=== PATIENT | female | born 1940 | race African-American/Black ===

== ENCOUNTER 2018-10-13 10:44 | Inpatient (IN) | payer MEDICARE, OTHER ==
[~2018-10-13] VITALS: Ht 160 cm; Wt 66.4 kg
[~2018-10-13 10:44] MED LIST: AMLO-268 PO; ATEN25TA42 PO; CYCL5TAB PO; INSU100I13 SQ; INSU100V31 SQ; INSULIN; LISI10TA2 PO; LORA0.5T96 PO; LOSA1TAB19 PO; PENT400T4 PO; TRAM50TA PO
[2018-10-13] MEDS ORDERED: IV NORMAL SALINE 500ML 500 ML IV ONE (11:15)
[2018-10-13 11:18] LABS: BASO # 0.1 x10^3/uL (0.0-0.2); BASO % 1 % (0-3); EOS % 0 % (0-3); HEMATOCRIT 36.8 % (36.0-47.0); HEMOGLOBIN 12.4 g/dL (12.0-15.5); LYMPH # 0.7 x10^3/uL (1.0-4.8); LYMPH % 8 % (24-48); MEAN CORPUSCULAR HEMOGLOBIN 31 pg (25-35); MEAN CORPUSCULAR HGB CONC 34 g/dL (31-37); MEAN CORPUSCULAR VOLUME 91 fL (79-100); MONO # 0.4 x10^3/uL (0.0-1.1); MONO % 5 % (0-9); NEUT # 7.3 x10^3uL (1.8-7.7); NEUT % 86 % (31-73); PLATELET COUNT 388 x10^3/uL (140-400); RED BLOOD COUNT 4.04 x10^6/uL (3.50-5.40); RED CELL DISTRIBUTION WIDTH 12.7 % (11.5-14.5); WHITE BLOOD COUNT 8.5 x10^3/uL (4.0-11.0)
[2018-10-13] MEDS ORDERED: ONDANSETRON PF 4 MG/2 ML VIAL. IV ONE (11:30)
[2018-10-13 11:31] LABS: ALBUMIN 2.6 g/dL (3.4-5.0); ALBUMIN/GLOBULIN RATIO 0.5 (1.0-1.7); CALCIUM 8.9 mg/dL (8.5-10.1); CREATININE 2.6 mg/dL (0.6-1.0); GFR 21.7; POTASSIUM 4.3 mmol/L (3.5-5.1); TOTAL BILIRUBIN 0.6 mg/dL (0.2-1.0); TOTAL PROTEIN 7.8 g/dL (6.4-8.2)
--- NOTE | 2018-10-13 11:49 | EKG ---
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
[2018-10-13 12:34] LABS: BACTERIA,URINE MOD /HPF (0-FEW); BILIRUBIN,URINE NEG (NEG); CLARITY,URINE HAZY; COLOR,URINE YELLOW; GLUCOSE,URINE 500 mg/dL (NEG); NITRITE,URINE NEG (NEG); RBC,URINE RARE /HPF (0-2); SQUAMOUS EPITHELIAL CELL,UR MOD /LPF; UROBILINOGEN,URINE 0.2 mg/dL (0.2 mg/dL)
[2018-10-13 12:35] LABS: GRANULAR CASTS,URINE OCC /HPF; HYALINE CASTS, URINE FEW /HPF
--- NOTE | 2018-10-13 13:06 | PHYS DOC ---
Past History Past Medical History: Diabetes, Hypertension, Other Past Surgical History: Colectomy Alcohol Use: None Drug Use: None Adult General Chief Complaint Chief Complaint: NAUSEA/VOMITING/DIARRHEA HPI HPI Patient is a 77 year old female who presents with playing of episodes of nausea and vomiting and diarrhea for the last 2 days. Patient states she has had 3-4 episodes of vomiting and 4-5 episodes of nonbloody diarrhea every day for the last 3 days but today had only one episode of vomiting and diarrhea. Patient denies abdominal pain, fever and chills, chest pain and shortness of breath, sick contact. Patient complaining of generalized weakness and not feeling good. Review of Systems Review of Systems Constitutional: Denies fever or chills [] Eyes: Denies change in visual acuity, redness, or eye pain [] HENT: Denies nasal congestion or sore throat [] Respiratory: Denies cough or shortness of breath [] Cardiovascular: No additional information not addressed in HPI [] GI: Denies abdominal pain, reports nausea, vomiting, diarrhea [] : Denies dysuria or hematuria [] Musculoskeletal: Denies back pain or joint pain [] Integument: Denies rash or skin lesions [] Neurologic: Denies headache, focal weakness or sensory changes [] Endocrine: Denies polyuria or polydipsia [] All other systems were reviewed and found to be within normal limits, except as documented in this note. Current Medications Current Medications Current Medications Medications (Trade) Dose Ordered Sig/Genna Start Time Stop Time Status Last Admin Dose Admin Ondansetron HCl (Zofran) 4 mg 1X ONCE 10/13/18 11:30 10/13/18 11:31 DC 10/13/18 11:16 4 MG Sodium Chloride 500 ml @ 0 mls/hr 1X ONCE 10/13/18 11:15 10/13/18 11:16 DC 10/13/18 11:16 500 MLS/HR Allergies Allergies Allergies Coded Allergies Type Severity Reaction Last Updated Verified No Known Drug Allergies 08/09/13 No Physical Exam Physical Exam Constitutional: Well developed, mild distress, non-toxic appearance. [] HENT: Normocephalic, atraumatic, oropharynx dry, no oral exudates.] Eyes: PERRLA, EOMI, conjunctiva normal, no discharge. [] Neck: Normal range of motion, no tenderness, supple, no stridor. [] Cardiovascular:Heart rate regular rhythm, no murmur [] Lungs & Thorax: Bilateral breath sounds clear to auscultation [] Abdomen: Bowel sounds normal, no guarding, soft, no tenderness, no masses, no pulsatile masses. [] Skin: Warm, dry, no erythema, no rash. [] Back: No tenderness, no CVA tenderness. [] Extremities: No tenderness, no cyanosis, no clubbing, ROM intact, no edema. [] Neurologic: Alert and oriented X 3, normal motor function, normal sensory function, no focal deficits noted. [] Psychologic: Affect normal, judgement normal, mood normal. [] Current Patient Data Vital Signs Vital Signs Date Time Temp Pulse Resp B/P (MAP) Pulse Ox O2 Delivery O2 Flow Rate FiO2 10/13/18 10:54 98.0 106 20 97 Room Air Lab Results Laboratory Tests Test 10/13/18 10:56 10/13/18 11:01 10/13/18 12:04 White Blood Count 8.5 x10^3/uL (4.0-11.0) Red Blood Count 4.04 x10^6/uL (3.50-5.40) Hemoglobin 12.4 g/dL (12.0-15.5) Hematocrit 36.8 % (36.0-47.0) Mean Corpuscular Volume 91 fL (79-100) Mean Corpuscular Hemoglobin 31 pg (25-35) Mean Corpuscular Hemoglobin Concent 34 g/dL (31-37) Red Cell Distribution Width 12.7 % (11.5-14.5) Platelet Count 388 x10^3/uL (140-400) Neutrophils (%) (Auto) 86 % (31-73) H Lymphocytes (%) (Auto) 8 % (24-48) L Monocytes (%) (Auto) 5 % (0-9) Eosinophils (%) (Auto) 0 % (0-3) Basophils (%) (Auto) 1 % (0-3) Neutrophils # (Auto) 7.3 x10^3uL (1.8-7.7) Lymphocytes # (Auto) 0.7 x10^3/uL (1.0-4.8) L Monocytes # (Auto) 0.4 x10^3/uL (0.0-1.1) Eosinophils # (Auto) 0.0 x10^3/uL (0.0-0.7) Basophils # (Auto) 0.1 x10^3/uL (0.0-0.2) Sodium Level 132 mmol/L (136-145) L Potassium Level 4.3 mmol/L (3.5-5.1) Chloride Level 98 mmol/L (98-107) Carbon Dioxide Level 22 mmol/L (21-32) Anion Gap 12 (6-14) Blood Urea Nitrogen 37 mg/dL (7-20) H Creatinine 2.6 mg/dL (0.6-1.0) H Estimated GFR (Cockcroft-Gault) 21.7 BUN/Creatinine Ratio 14 (6-20) Glucose Level 269 mg/dL (70-99) H Lactic Acid Level 1.2 mmol/L (0.4-2.0) Calcium Level 8.9 mg/dL (8.5-10.1) Total Bilirubin 0.6 mg/dL (0.2-1.0) Aspartate Amino Transferase (AST) 23 U/L (15-37) Alanine Aminotransferase (ALT) 23 U/L (14-59) Alkaline Phosphatase 99 U/L (46-116) Troponin I Quantitative < 0.017 ng/mL (0-0.055) Total Protein 7.8 g/dL (6.4-8.2) Albumin 2.6 g/dL (3.4-5.0) L Albumin/Globulin Ratio 0.5 (1.0-1.7) L Lipase 51 U/L (73-393) L Glucose (Fingerstick) 260 mg/dL (70-99) H Urine Collection Type Unknown Urine Color Yellow Urine Clarity Hazy Urine pH 5.0 Urine Specific [place] 1.020 Urine Protein >100 mg/dl (NEG-TRACE) Urine Glucose (UA) 500 mg/dL (NEG) Urine Ketones (Stick) Trace mg/dL (NEG) Urine Blood Mod (NEG) Urine Nitrite Neg (NEG) Urine Bilirubin Neg (NEG) Urine Urobilinogen Dipstick 0.2 mg/dL (0.2 mg/dL) Urine Leukocyte Esterase Neg (NEG) Urine RBC Rare /HPF (0-2) Urine WBC 1-4 /HPF (0-4) Urine Squamous Epithelial Cells Mod /LPF Urine Bacteria Mod /HPF (0-FEW) Urine Hyaline Casts Few /HPF Urine Granular Casts Occ /HPF Urine Mucus Slight /LPF EKG EKG EKG interpreted by me. EKG at 11 elevate showed sinus tachycardia at rate of 104 , normal DE and QT intervals, T-wave abnormalities anterior 1 lateral leads, no acute ST and T-wave abnormalities. Radiology/Procedures Radiology/Procedures [] Course & Med Decision Making Course & Med Decision Making Pertinent Labs and Imaging studies reviewed. (See chart for details) Evaluation of patient in ER showed 77-year-old male patient with history of chronic renal failure and diabetes mellitus presented with complaining of episode of nausea and vomiting and diarrhea for 2 days. Patient did not have abdominal pain. Patient had marked tachycardia at arrival to ER that resolved with rest. Patient was afebrile and did not have hypotension. Labs did not show acute finding except for chronic renal insufficiency. Patient treated with IV fluid and felt better. Patient tolerated oral intake. Plan to admit patient for observation regarding acute gastroenteritis and diabetes mellitus and chronic renal failure. accepted admission at 1303. Dragon Disclaimer Dragon Disclaimer This electronic medical record was generated, in whole or in part, using a voice recognition dictation system. Departure Departure: Impression: Primary Impression: Acute gastroenteritis Additional Impressions: Acute on chronic renal insufficiency Uncontrolled diabetes mellitus Disposition: HOME, SELF-CARE (at 1303) Admitting Physician: Alexx Cruz (accepted admission at 1303) Condition: STABLE Referrals: MARTIN MORRIS MD (PCP) Problem Qualifiers Additional Impressions: Uncontrolled diabetes mellitus Diabetes mellitus type: type 2 Glycemic state: with hyperglycemia Qualified Codes: E11.65 - Type 2 diabetes mellitus with hyperglycemia KEDAR HENDERSON MD Oct 13, 2018 13:06
[2018-10-13 13:50] VITALS: BP 169/82
[2018-10-13] MEDS: IV NORMAL SALINE 1,000ML 1,000 ML IV SCH ×2 (14:10→22:52)
[2018-10-13] MEDS ORDERED: CARV25TA PO (15:45)
[2018-10-13] MEDS ORDERED: TIMO10DR5 EACHEYE (15:45)
[2018-10-13] MEDS ORDERED: TRAM50TA PO (15:45)
[2018-10-13] MEDS ORDERED: LOSA1TAB22 PO (15:45)
[2018-10-13] MEDS ORDERED: FOLI1CAP10 PO (15:45)
[2018-10-13] MEDS ORDERED: ATEN25TA42 PO (15:45)
[2018-10-13 16:03] VITALS: BP 154/70
[2018-10-13] MEDS ORDERED: ONDANSETRON PF 4 MG/2 ML VIAL. IV PRN (16:30)
[2018-10-13] MEDS ORDERED: DEXTROSE 50% 25 GM / 50ML DISP.SYRIN. IV PRN (16:30)
[2018-10-13] MEDS: INSULIN LISPRO 300 UNITS/3 ML INSULN.PEN. SQ SCH (17:08)
[2018-10-13 19:29] VITALS: BP 149/73
[2018-10-13 23:17] VITALS: BP 142/79
[2018-10-14 05:29] VITALS: BP 143/77
[2018-10-14] MEDS: INSULIN LISPRO 300 UNITS/3 ML INSULN.PEN. SQ SCH ×4 (08:00→17:00)
[2018-10-14] MEDS: IV NORMAL SALINE 1,000ML 1,000 ML IV SCH ×2 (08:37→21:45)
[2018-10-14 11:47] VITALS: BP 158/84
[2018-10-14] MEDS ORDERED: traMADol 50 MG TABLET PO PRN (12:30)
--- NOTE | 2018-10-14 13:12 | HP ---
ADMIT DATE: 10/13/2018 HISTORY OF PRESENT ILLNESS: The patient is a 77-year-old -Green[place] female patient who came to the Emergency Room complaining of nausea, vomiting as well as diarrhea that started last Tuesday. She has had 3 or 4 episodes of vomiting, 4 episodes of nonbloody diarrhea every day for the last 3 days prior to admission and on the admission day, she had only 1 episode of vomiting and diarrhea. She denied any abdominal pain. Denied any fever, chills, chest pain or shortness of breath, but did complain of pain with generalized weakness and also dizziness. She was evaluated in the Emergency Room and her chemistry showed that she has mild hyponatremia. Her creatinine was 2.6 and was admitted for rehydration. PAST MEDICAL HISTORY: Significant for type 2 diabetes mellitus that has been longstanding for more than 30 years, hypertension, hyperlipidemia, chronic kidney disease, transient ischemic attack, and sarcoidosis. PAST SURGICAL HISTORY: Significant for bilateral cataract extraction. 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 She has cholecystectomy, right shoulder rotator cuff repair and left middle finger fracture, status post open reduction and internal fixation, total abdominal hysterectomy and bilateral salpingo-oophorectomy. ALLERGIES: She has no known drug allergies. MEDICATIONS: She is currently on following medications: She is on pentoxifylline 400 mg 3 times a day, atenolol 25 mg daily, carvedilol 25 mg twice a day, losartan/hydrochlorothiazide once a day, tramadol 50 mg every 6 hours, timolol maleate 1 drop to both eyes twice a day. She is on NovoLog insulin and has insulin sliding scale before meals. She is on Lantus insulin 30 units at bedtime. She is on Nephro-Aman 1 capsule once a day. FAMILY HISTORY: She has 2 brothers and 1 sister, all younger and . Her older brother of hypertension, end-stage renal disease. Her sister of what seems to be status epilepticus and her baby brother at the age of 22 because of obscure cancer. Her mother at age of 25 and father at age of 23 and had sarcoidosis. SOCIAL HISTORY: She is . She has 7 daughters and 3 sons. She does not smoke, drink alcohol or use any recreational drugs. REVIEW OF SYSTEMS: The patient has what seemed to be glaucoma and perhaps macular degeneration and diabetic retinopathy. Denied any earache, tinnitus or sensorineural deafness. Denied any nosebleeds, stuffy nose or postnasal drip. Denied any sore throat, but did complain of nausea, vomiting as well as diarrhea, no constipation. Denied any hematemesis, melena or hematochezia. Denied any dysuria, frequency or hematuria. Denied any chest pain, shortness of breath, orthopnea, paroxysmal nocturnal dyspnea. Denied any cough, phlegm or hemoptysis. PHYSICAL EXAMINATION: GENERAL: On arrival to the Emergency Room, she was somewhat unwell, but no pallor, jaundice, cyanosis, or thyromegaly. No jugular venous distension. No lower limb edema. VITAL SIGNS: Her heart rate was 106, blood pressure 174/85, temperature was 98, respiratory rate 20, and oxygen saturation was 97% on room air. HEAD, EYES, EARS, NOSE, AND THROAT: Showed normocephalic, atraumatic. NECK: Supple. HEART: Showed normal first and second sounds. No gallop, rub or murmur. CHEST: Clear to auscultation. No crepitation or rhonchi. ABDOMEN: Distended, soft, nontender. No guarding or rigidity. No organomegaly. All hernial orifice intact. Bowel sounds normal. NEUROLOGIC: She was awake, alert, responding appropriately. Cranial nerves intact. EXTREMITIES: She moves extremities without difficulty. She ambulates without assistance or assistive devices. LABORATORY DATA: Showed serum sodium of 132, potassium 4.3, chloride 98, bicarbonate 22, anion gap of 12, BUN 37, creatinine 2.6, estimated GFR was 22 mL per minute. Her glucose was 269, lactic acid was 1.2, calcium was 8.9. Total bilirubin, AST, ALT, alkaline phosphatase were normal. Total protein was 7.8, albumin was 2.6 and lipase was 51. Her white cell count was 8500, hemoglobin 12.4, hematocrit was 37, MCV was 91, and platelet count 288,000. Her urinalysis showed that the urine was yellow, hazy with a pH of 5, specific gravity of 1.020. There was large amount of protein, large amount of glucose, trace of ketones, moderate amount of blood, negative for nitrite and leukocyte esterase. There are rare rbc's, 1-4 wbc's, moderate amount of bacteria. IMPRESSION AND PLAN: In summary, this is a 77-year-old -[place] female patient who was admitted with recurrent bouts of nausea, vomiting as well as diarrhea, consistent with probably acute gastroenteritis. The patient was started on IV fluid. We will continue with the antiemetics. We will monitor her blood sugar and adjust insulin as they are using sliding scale. We will start her on a clear liquid diet and advance her diet as tolerated. ASIF TONEY MD DR: ALYSSA/marquise JOB#: [id number] / [id number]
[2018-10-14 13:22] LABS: CALCIUM 8.2 mg/dL (8.5-10.1); CREATININE 2.4 mg/dL (0.6-1.0); GFR 23.8; POTASSIUM 4.7 mmol/L (3.5-5.1)
[2018-10-14] MEDS: PENTOXIFYLLINE ER 400 MG TABLET.ER. PO SCH ×2 (15:10→21:13)
[2018-10-14] MEDS: CARVEDILOL 12.5 MG TABLET PO SCH (18:08)
[2018-10-14 19:48] VITALS: BP 156/81
[2018-10-14] MEDS: TIMOLOL 0.5% OPHTH SOLUTION 5ML BOTTLE. OU SCH (21:13)
[2018-10-14 23:35] VITALS: BP 174/74
[2018-10-15 04:57] VITALS: BP 166/74
[2018-10-15] MEDS: INSULIN LISPRO 300 UNITS/3 ML INSULN.PEN. SQ SCH ×5 (08:00→17:44)
[2018-10-15] MEDS: IV NORMAL SALINE 1,000ML 1,000 ML IV SCH ×2 (08:46→19:51)
[2018-10-15] MEDS: TIMOLOL 0.5% OPHTH SOLUTION 5ML BOTTLE. OU SCH ×2 (08:47→20:16)
[2018-10-15] MEDS: PENTOXIFYLLINE ER 400 MG TABLET.ER. PO SCH ×3 (08:47→20:15)
[2018-10-15] MEDS: FOLIC/VIT B COMP W-C (RENAL) TABLET. PO SCH (08:47)
[2018-10-15] MEDS: CARVEDILOL 12.5 MG TABLET PO SCH ×2 (08:48→17:43)
[2018-10-15 11:54] VITALS: BP 167/84
[2018-10-15 19:11] VITALS: BP 154/72
--- NOTE | 2018-10-15 23:52 | PN ---
DATE: 10/15/2018 SUBJECTIVE: The patient is resting slightly propped up in bed, in no apparent respiratory distress. On questioning her, she continued to have some nausea and also continued to have loose bowel movement. Denied any abdominal pain. She has managed to tolerate some baked potato this afternoon. OBJECTIVE: GENERAL: When I examined her, she looked well and was clearly in no apparent respiratory distress, pale, but no jaundice, cyanosis, lymphadenopathy or thyromegaly. No jugular venous distention. No lower limb edema. VITAL SIGNS: Her heart rate was 57, blood pressure 167/84, temperature was 98.1, respiratory rate 20, and oxygen saturation was 96%. The rest of clinical examination is stable, has not really changed. Her intake over the last 24 hours was 2378, output was only 300. LABORATORY DATA: Showed her serum sodium 140, potassium 4.7, chloride 108, bicarbonate 20, anion gap of 12, BUN 34, creatinine 2.4, estimated GFR was 23 mL per minute. Her glucose was 161, calcium was 8.1. Her white cell count was 8500, hemoglobin 12, hematocrit 36, MCV 91, and platelet count 388,000. Urinalysis was unremarkable. Urine culture has showed mixed urogenital sunitha of 25-50,000. Her stool for C. diff and stool for culture and sensitivity is still pending by the time of this dictation. ASSESSMENT: 1. Probably acute gastroenteritis with recurrent bouts of nausea, vomiting as well as diarrhea, persistent, probably acute gastroenteritis. 2. The patient has multiple other medical problems including: A. Type 2 diabetes mellitus, has been longstanding for more than 30 years. 3. Hypertension. 4. Hyperlipidemia. 5. Chronic kidney disease. 6. Transient ischemic attack. 7. Sarcoidosis. PLAN: My plan is to continue with IV fluid. We will advance her diet as tolerated. I will arrange for her to have a gastric emptying study and also send stool for C. diff and culture and sensitivity. ASIF TONEY MD DR: ALYSSA/marquise JOB#: [id number] / [id number]
[2018-10-16] MEDS: IV NORMAL SALINE 1,000ML 1,000 ML IV SCH ×2 (05:29→19:30)
[2018-10-16 06:00] VITALS: BP 177/80
[2018-10-16 06:52] LABS: HEMATOCRIT 30.5 % (36.0-47.0); HEMOGLOBIN 10.2 g/dL (12.0-15.5); RED BLOOD COUNT 3.31 x10^6/uL (3.50-5.40); RED CELL DISTRIBUTION WIDTH 12.9 % (11.5-14.5); WHITE BLOOD COUNT 5.4 x10^3/uL (4.0-11.0)
[2018-10-16 06:55] LABS: ALBUMIN 1.9 g/dL (3.4-5.0); ALBUMIN/GLOBULIN RATIO 0.5 (1.0-1.7); CALCIUM 7.7 mg/dL (8.5-10.1); CREATININE 1.9 mg/dL (0.6-1.0); GFR 31.2; POTASSIUM 4.6 mmol/L (3.5-5.1); TOTAL BILIRUBIN 0.3 mg/dL (0.2-1.0); TOTAL PROTEIN 5.8 g/dL (6.4-8.2)
[2018-10-16] MEDS: INSULIN LISPRO 300 UNITS/3 ML INSULN.PEN. SQ SCH ×3 (09:21→17:04)
[2018-10-16] MEDS: PENTOXIFYLLINE ER 400 MG TABLET.ER. PO SCH ×3 (09:21→21:08)
[2018-10-16] MEDS: CARVEDILOL 12.5 MG TABLET PO SCH ×2 (09:21→17:05)
[2018-10-16] MEDS: LOSARTAN 50 MG TABLET. PO SCH (09:22)
[2018-10-16] MEDS: FOLIC/VIT B COMP W-C (RENAL) TABLET. PO SCH (09:22)
[2018-10-16] MEDS: TIMOLOL 0.5% OPHTH SOLUTION 5ML BOTTLE. OU SCH ×2 (09:22→21:08)
[2018-10-16] MEDS: hydroCHLOROthiazide 25 MG TABLET PO SCH (09:23)
[2018-10-16 10:38] VITALS: BP 176/75
[2018-10-16 14:22] VITALS: BP 171/74
--- NOTE | 2018-10-16 19:28 | PN ---
DATE: 10/16/2018 SUBJECTIVE: The patient is resting slightly propped up in bed, in no apparent respiratory distress. She has had no further episodes of nausea, vomiting. No diarrhea. Has tolerated her diet yesterday. The plan to advance her diet this morning and if she remains stable, probably discharge her to the ____ tomorrow. PHYSICAL EXAMINATION: GENERAL: When I examined her this afternoon, she looked well and was clearly in no apparent respiratory distress, pale, but no jaundice, cyanosis, or thyromegaly. No jugular venous distension. No limb edema. VITAL SIGNS: Her heart rate was 73, blood pressure was 177/80, temperature was 98.2, respiratory rate was 16, and oxygen saturation was 98% on room air. HEAD, EYES, EARS, NOSE AND THROAT: Showed normocephalic, atraumatic. NECK: Supple. HEART: Showed normal first and second heart sounds. No gallop or murmur. CHEST: Clear to auscultation. No crepitation or rhonchi. ABDOMEN: Distended, soft and nontender. NEUROLOGIC: She is awake, alert, responding appropriately. All cranial nerves are intact. She moves extremities without difficulty. She ambulates without assistance or assistive devices. Her intake over the last 24 hours was 2735 and no output was recorded. LABORATORY DATA: Her lab work as of this morning showed a serum sodium 138, potassium 4.6, chloride 110, bicarbonate 20, anion gap of 8, BUN 21, creatinine 1.9. Her estimated GFR was ____, blood glucose 178, calcium was 7.7. Total bilirubin, AST, ALT, alkaline phosphatase were normal. Total protein was 5.8 and albumin was 1.9. ASSESSMENT: 1. Acute gastroenteritis, improving slowly. 2. [id number] kidney injury, improving. Her creatinine down from 2.6 to 1.9. 3. The patient has multiple other medical problems including: A. Longstanding type 2 diabetes mellitus. B. Hypertension. C. Hyperlipidemia. D. Chronic kidney disease. E. Transient ischemic attacks. F. Sarcoidosis. PLAN: My plan is to resume her blood pressure medication and advance her diet as tolerated and repeat all her labs tomorrow and if she remains stable, tolerating her diet, she can be discharged home. ASIF TONEY MD DR: Enoc JOB#: [id number] / [id number]
[2018-10-16 19:41] VITALS: BP 164/70
[2018-10-16 22:42] VITALS: BP 172/83
[2018-10-17 05:19] VITALS: BP 156/72
[2018-10-17 07:46] LABS: CALCIUM 8.2 mg/dL (8.5-10.1); CREATININE 1.9 mg/dL (0.6-1.0); GFR 31.2; POTASSIUM 4.4 mmol/L (3.5-5.1)
[2018-10-17 08:32] VITALS: BP 156/72
[2018-10-17] MEDS: PENTOXIFYLLINE ER 400 MG TABLET.ER. PO SCH (08:32)
[2018-10-17] MEDS: FOLIC/VIT B COMP W-C (RENAL) TABLET. PO SCH (08:32)
[2018-10-17] MEDS: CARVEDILOL 12.5 MG TABLET PO SCH (08:32)
[2018-10-17] MEDS: TIMOLOL 0.5% OPHTH SOLUTION 5ML BOTTLE. OU SCH (08:32)
[2018-10-17] MEDS: LOSARTAN 50 MG TABLET. PO SCH (08:32)
[2018-10-17] MEDS: hydroCHLOROthiazide 25 MG TABLET PO SCH (08:32)
[2018-10-17] MEDS: INSULIN LISPRO 300 UNITS/3 ML INSULN.PEN. SQ SCH (08:37)
--- NOTE | 2018-10-17 12:30 | DS ---
DATE OF DISCHARGE: 10/17/2018 HOSPITAL COURSE: The patient is a 77-year-old -[place] female patient who was admitted with recurrent bouts of nausea, vomiting as well as diarrhea for which we started her on IV fluid and antiemetics. We did actually start her on a clear liquid diet that she gradually advanced and she now has had no more nausea, no vomiting, no more diarrhea, no abdominal pain. She is tolerating her diet, has been up and about without any dizziness or lightheadedness and a decision was made to discharge her home to continue on her home medications and to follow with her primary care physician. PHYSICAL EXAMINATION: GENERAL: When I examined her this morning, she looked well and was clearly in no apparent respiratory distress. No pallor, jaundice, cyanosis, or thyromegaly. No jugular venous distension. No limb edema. VITAL SIGNS: Her heart rate was 87, blood pressure 156/72, temperature was 98.7, respiratory rate was 20, and oxygen saturation was 98%. HEAD, EYES, EARS, NOSE, AND THROAT: Normocephalic, atraumatic. NECK: Supple. HEART: Showed normal first and second heart sounds. No gallop, rub, or murmur. CHEST: Clear to auscultation. No crepitation or rhonchi. ABDOMEN: Distended, soft, nontender. No guarding or rigidity. No organomegaly. All hernial orifice intact. Bowel sounds normal. NEUROLOGIC: She is awake, alert, responding appropriately. All cranial nerves intact. She moves extremities without difficulty. She ambulates without assistance or assistive devices. Her intake over the last 24 hours was ____, no output was recorded. LABORATORY DATA: Her lab this morning showed white cell count 5400, hemoglobin 10, hematocrit 30, MCV 92, and platelet count 299,000. Serum sodium 139, potassium 4.4, chloride 109, bicarbonate 20, anion gap of 10, BUN 17, creatinine 1.9, estimated GFR was 31 mL per minute. Her glucose 161, calcium was 8.2. Her liver enzymes are normal as well as her total protein was 5.8, albumin was 1.9. ASSESSMENT: 1. Acute gastroenteritis, improved. 2. Acute on chronic kidney injury, improved. Her creatinine is down from 2.6-1.93. The patient has multiple other medical problems including: A. Longstanding type 2 diabetes mellitus. B. Hypertension. C. Hyperlipidemia. D. Chronic kidney disease. E. Transient ischemic attack. F. Sarcoidosis. G. Protein calorie malnutrition with serum albumin only 1.9 g/dL. ASIF TONYE MD DR: ALYSSA/marquise JOB#: [id number] / [id number]
== END 2018-10-17 09:50 | disposition home or self-care (01) | DRG 682 ==
LOC: ER 10:44 → 1 SOUTH 13:05
PROVIDERS: ADMIT Internal Medicine; ATTEND Internal Medicine
DX: N17.9 Acute kidney failure, unspecified (principal); E43 Unspecified severe protein-calorie malnutrition; E87.1 Hypo-osmolality and hyponatremia; G45.9 Transient cerebral ischemic attack, unspecified; K52.9 Noninfective gastroenteritis and colitis, unspecified; E11.65 Type 2 diabetes mellitus with hyperglycemia; D86.9 Sarcoidosis, unspecified; E11.22 Type 2 diabetes mellitus with diabetic chronic kidney disease; E78.5 Hyperlipidemia, unspecified; H35.30 Unspecified macular degeneration; I12.9 Hypertensive chronic kidney disease with stage 1 through stage 4 chronic kidney disease, or unspecified chronic kidney disease; N18.9 Chronic kidney disease, unspecified; Z86.73 Personal history of transient ischemic attack (TIA), and cerebral infarction without residual deficits; Z90.710 Acquired absence of both cervix and uterus; Z98.41 Cataract extraction status, right eye; Z98.42 Cataract extraction status, left eye; Z68.25 Body mass index [BMI] 25.0-25.9, adult
CPT/HCPCS: 36415; 80048; 80053; 81001; 82947; 83605; 83690; 84484; 85025; 85027; 87086; 93005; 96361; 96374; J1815; J2405; J7040; 99285-25; J7030

== ENCOUNTER 2019-06-18 10:07 | Emergency (ER) | payer MEDICARE, OTHER ==
[~2019-06-18] VITALS: Ht 160 cm; Wt 67.0 kg
[~2019-06-18 10:07] MED LIST changes: +CARV25TA PO; +FOLI1CAP10 PO; +LOSA1TAB22 PO; -PENT400T4 PO; +PENT400T7 PO; +TIMO10DR5 EACHEYE
[2019-06-18] MEDS ORDERED: ONDANSETRON PF 4 MG/2 ML VIAL. IVP ONE (10:30)
[2019-06-18] MEDS ORDERED: FAMOTIDINE 20 MG/2 ML VIAL IVP ONE (10:30)
[2019-06-18 10:45] LABS: BASO # 0.1 x10^3/uL (0.0-0.2); BASO % 1 % (0-3); EOS # 0.2 x10^3/uL (0.0-0.7); EOS % 2 % (0-3); HEMATOCRIT 31.3 % (36.0-47.0); HEMOGLOBIN 10.4 g/dL (12.0-15.5); LYMPH # 1.4 x10^3/uL (1.0-4.8); LYMPH % 18 % (24-48); MEAN CORPUSCULAR HEMOGLOBIN 31 pg (25-35); MEAN CORPUSCULAR HGB CONC 33 g/dL (31-37); MEAN CORPUSCULAR VOLUME 92 fL (79-100); MONO # 0.6 x10^3/uL (0.0-1.1); MONO % 8 % (0-9); NEUT # 5.8 x10^3uL (1.8-7.7); NEUT % 71 % (31-73); PLATELET COUNT 410 x10^3/uL (140-400); RED BLOOD COUNT 3.39 x10^6/uL (3.50-5.40); RED CELL DISTRIBUTION WIDTH 12.8 % (11.5-14.5); WHITE BLOOD COUNT 8.1 x10^3/uL (4.0-11.0)
[2019-06-18 10:58] LABS: ALBUMIN 2.3 g/dL (3.4-5.0); ALBUMIN/GLOBULIN RATIO 0.5 (1.0-1.7); CALCIUM 9.3 mg/dL (8.5-10.1); CREATININE 4.9 mg/dL (0.6-1.0); GFR 10.4; POTASSIUM 3.9 mmol/L (3.5-5.1); TOTAL BILIRUBIN 0.4 mg/dL (0.2-1.0); TOTAL PROTEIN 7.4 g/dL (6.4-8.2)
[2019-06-18] MEDS ORDERED: cloNIDine HCL 0.1 MG TABLET PO ONE (11:15)
--- NOTE | 2019-06-18 11:19 | ED.ADGEN ---
Past History Past Medical History: Diabetes, Hypertension, Other Additional Past Medical Histor: Stage IV Kidney disease Past Surgical History: Colectomy Alcohol Use: None Drug Use: None Adult General Chief Complaint Chief Complaint Epigastric pain HPI HPI Patient is a 78-year-old female presents with intermittent epigastric pain 4 days. Pain is described as sharp worse after eating. It is rated uvot-ie-tacjaibh and is tender to palpation. Patient taken antacid without relief. Patient denies nausea vomiting, hematemesis is, ground emesis. No constipation or diarrhea. No urinary frequency urgency burning. No fever chills or sweats. Denies back pain. No other acute symptoms or complaints. History of cholecystectomy. Patient states she has not her medications and ate the past 2 days due to concerns regarding eating [] Review of Systems Review of Systems Review symptoms as per history of present illness. All other review of symptoms tonight. All other systems were reviewed and found to be within normal limits, except as documented in this note. Current Medications Current Medications Current Medications Medications (Trade) Dose Ordered Sig/Genna Start Time Stop Time Status Last Admin Dose Admin Clonidine HCl (Catapres) 0.1 mg 1X ONCE 06/18/19 11:15 06/18/19 11:16 DC 06/18/19 11:22 0.1 MG Famotidine (Pepcid Vial) 20 mg 1X ONCE 06/18/19 10:30 06/18/19 10:31 DC 06/18/19 10:38 20 MG Fentanyl Citrate (Fentanyl 2ml Vial) 50 mcg 1X ONCE 06/18/19 10:30 06/18/19 10:31 DC 06/18/19 10:39 50 MCG Ondansetron HCl (Zofran) 4 mg 1X ONCE 06/18/19 10:30 06/18/19 10:31 DC 06/18/19 10:38 4 MG Allergies Allergies Allergies Coded Allergies Type Severity Reaction Last Updated Verified No Known Drug Allergies 08/09/13 No Physical Exam Physical Exam Constitutional: Well developed, well nourished, no acute distress, non-toxic appearance. [] HENT: Normocephalic, atraumatic, bilateral external ears normal, oropharynx moist, no oral exudates, nose normal. [] Eyes: PERRLA, EOMI, conjunctiva normal, no discharge. [] Neck: Normal range of motion, no tenderness. [] Cardiovascular:Heart rate regular rhythm, no murmur [] Lungs & Thorax: Bilateral breath sounds clear to auscultation [] Abdomen: Bowel sounds normal, soft, mild epigastric pain, tenderness. [] Skin: Warm, dry, no erythema, no rash. [] Back: No tenderness. [] Extremities: No tenderness. [] Neurologic: Alert and oriented X 3, normal motor function, normal sensory function, no focal deficits noted. [] Psychologic: Affect normal, judgement normal, mood normal. [] Current Patient Data Vital Signs Vital Signs Date Time Temp Pulse Resp B/P (MAP) Pulse Ox O2 Delivery O2 Flow Rate FiO2 06/18/19 12:55 77 16 177/91 (119) 98 Room Air 06/18/19 10:21 98.3 Lab Results Laboratory Tests Test 06/18/19 10:30 White Blood Count 8.1 x10^3/uL (4.0-11.0) Red Blood Count 3.39 x10^6/uL (3.50-5.40) L Hemoglobin 10.4 g/dL (12.0-15.5) L Hematocrit 31.3 % (36.0-47.0) L Mean Corpuscular Volume 92 fL (79-100) Mean Corpuscular Hemoglobin 31 pg (25-35) Mean Corpuscular Hemoglobin Concent 33 g/dL (31-37) Red Cell Distribution Width 12.8 % (11.5-14.5) Platelet Count 410 x10^3/uL (140-400) H Neutrophils (%) (Auto) 71 % (31-73) Lymphocytes (%) (Auto) 18 % (24-48) L Monocytes (%) (Auto) 8 % (0-9) Eosinophils (%) (Auto) 2 % (0-3) Basophils (%) (Auto) 1 % (0-3) Neutrophils # (Auto) 5.8 x10^3uL (1.8-7.7) Lymphocytes # (Auto) 1.4 x10^3/uL (1.0-4.8) Monocytes # (Auto) 0.6 x10^3/uL (0.0-1.1) Eosinophils # (Auto) 0.2 x10^3/uL (0.0-0.7) Basophils # (Auto) 0.1 x10^3/uL (0.0-0.2) Sodium Level 138 mmol/L (136-145) Potassium Level 3.9 mmol/L (3.5-5.1) Chloride Level 105 mmol/L (98-107) Carbon Dioxide Level 22 mmol/L (21-32) Anion Gap 11 (6-14) Blood Urea Nitrogen 31 mg/dL (7-20) H Creatinine 4.9 mg/dL (0.6-1.0) H Estimated GFR (Cockcroft-Gault) 10.4 BUN/Creatinine Ratio 6 (6-20) Glucose Level 227 mg/dL (70-99) H Calcium Level 9.3 mg/dL (8.5-10.1) Total Bilirubin 0.4 mg/dL (0.2-1.0) Aspartate Amino Transferase (AST) 18 U/L (15-37) Alanine Aminotransferase (ALT) 11 U/L (14-59) L Alkaline Phosphatase 94 U/L (46-116) Troponin I Quantitative < 0.017 ng/mL (0-0.055) Total Protein 7.4 g/dL (6.4-8.2) Albumin 2.3 g/dL (3.4-5.0) L Albumin/Globulin Ratio 0.5 (1.0-1.7) L Lipase 94 U/L (73-393) EKG EKG [] Radiology/Procedures Radiology/Procedures [] Course & Med Decision Making Course & Med Decision Making Pertinent Labs and Imaging studies reviewed. (See chart for details) [CT, EKG and lab work reviewed. No acute findings. Creatinine is 4.9. Case reviewed with the office for monitoring closely. Most recent creatinine was 4.6. Symptoms consistent with gastritis. i'll treat supportively with PCP follow-up for further management. Return precautions reviewed. Patient verbalizes understanding agreement discharge instructions prior to departure. Patient instructed to resume consult upon returning home.] Final Impression Final Impression [1. right foot contusion] Dragon Disclaimer Dragon Disclaimer This electronic medical record was generated, in whole or in part, using a voice recognition dictation system. CLAUDIA RUSS DO Jun 18, 2019 11:19
--- NOTE | 2019-06-18 12:28 | RAD ---
CT of the abdomen and pelvis without contrast. 06/18/2019 11:54 AM Indication: Upper abdominal pain Comparison Study: CT of the abdomen and pelvis without contrast October 01, 2015. Technique: Multidetector CT imaging of the abdomen pelvis is obtained without administration of contrast. Findings: Visualized lung bases demonstrate normality. The wall of the aorta is denser than its lumen. On the noncontrast enhanced CT scan this suggests anemia. Prior cholecystectomy noted. Adrenal glands are unremarkable. Spleen is unremarkable. Pancreas is atrophic in appearance but otherwise grossly unremarkable. Low-density lesion in the right kidney consistent with a simple cyst is seen medially measuring approximately 1.2 cm. Small exophytic lesion measuring 1.0 cm is also seen. Density is again consistent with a cyst. Probable small exophytic cyst involving the right kidney noted measuring 8 mm. No evidence of hydronephrosis, nephrolithiasis, or obstructive uropathy is seen. Limited noncontrast enhanced evaluation the stomach demonstrates possible gastric wall thickening. Gastritis is not excluded. There is no bowel obstruction. No evidence of acute inflammatory change involving the small or large bowel is identified. No pneumoperitoneum is identified. Mildly increased stool seen throughout the colon. Correlate with evidence of constipation. The appendix is unremarkable. The bladder is mildly distended but otherwise unremarkable. No evidence of acute osseous abnormality is identified. IMPRESSION: 1.Low gastric evaluation is limited, possible gastric wall thickening is seen. Findings could reflect gastritis. Consider endoscopy as clinically indicated. 2. Probable anemia 3. Small bilateral renal cysts. CT DOSING PQRS STATEMENT: One or more of the following individualized dose reduction techniques were utilized for this examination: 1. Automated exposure control 2. Adjustment of the mA and/or kV according to patient size 3. Use of iterative reconstruction technique Electronically signed by: Fabrice Chambers MD (06/18/2019 12:25 PM) [id number]
[2019-06-18 12:55] VITALS: BP 177/91
[2019-06-18] MEDS ORDERED: FAMO-63 PO (13:17)
[2019-06-18] MEDS ORDERED: PANT40TA3 PO (13:17)
--- NOTE | 2019-06-18 23:04 | EKG ---
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
== END 2019-06-18 13:33 | disposition home or self-care (01) ==
LOC: ER 10:07
DX: S90.31XA Contusion of right foot, initial encounter (principal); R10.13 Epigastric pain; E11.22 Type 2 diabetes mellitus with diabetic chronic kidney disease; I12.9 Hypertensive chronic kidney disease with stage 1 through stage 4 chronic kidney disease, or unspecified chronic kidney disease; N18.4 Chronic kidney disease, stage 4 (severe); Z90.49 Acquired absence of other specified parts of digestive tract; X58.XXXA Exposure to other specified factors, initial encounter; Y93.89 Activity, other specified; Y92.89 Other specified places as the place of occurrence of the external cause; Y99.8 Other external cause status
CPT/HCPCS: 99285; J2405; J3010; J3490; 36415; 74176; 80053; 83690; 84484; 85025; 93005

== ENCOUNTER 2019-06-19 11:47 | Inpatient (IN) | payer MEDICARE, OTHER ==
[~2019-06-19] VITALS: Ht 167.6 cm; Wt 67.1 kg
[~2019-06-19 11:47] MED LIST changes: +FAMO-63 PO; +PANT40TA3 PO
--- NOTE | 2019-06-19 12:31 | RAD ---
CHEST AP ONLY History: Hypertension Comparison: July 23, 2013 Findings: Single view of the chest is submitted. There is no infiltrate, pneumothorax, or effusion. Pericardial cardiac silhouette is probably unchanged allowing for differences in degree of inspiration and technique. There are again postsurgical changes of the proximal right humerus. Impression: 1. No acute radiographic abnormality is identified. Electronically signed by: Chalo Oliveira MD (06/19/2019 12:28 PM) [facility]
[2019-06-19] MEDS ORDERED: CARVEDILOL 12.5 MG TABLET PO STA (12:48)
[2019-06-19] MEDS ORDERED: LOSARTAN 50 MG TABLET. PO STA (12:48)
[2019-06-19 12:53] LABS: BASO % 1 % (0-3); EOS # 0.2 x10^3/uL (0.0-0.7); EOS % 3 % (0-3); HEMATOCRIT 29.4 % (36.0-47.0); HEMOGLOBIN 9.9 g/dL (12.0-15.5); LYMPH # 1.5 x10^3/uL (1.0-4.8); LYMPH % 24 % (24-48); MEAN CORPUSCULAR HEMOGLOBIN 31 pg (25-35); MEAN CORPUSCULAR HGB CONC 34 g/dL (31-37); MEAN CORPUSCULAR VOLUME 93 fL (79-100); MONO # 0.4 x10^3/uL (0.0-1.1); MONO % 7 % (0-9); NEUT # 4.2 x10^3uL (1.8-7.7); NEUT % 66 % (31-73); PLATELET COUNT 372 x10^3/uL (140-400); RED BLOOD COUNT 3.16 x10^6/uL (3.50-5.40); RED CELL DISTRIBUTION WIDTH 12.9 % (11.5-14.5); WHITE BLOOD COUNT 6.4 x10^3/uL (4.0-11.0)
--- NOTE | 2019-06-19 12:56 | PHYS DOC ---
Past History Past Medical History: Diabetes, Hypertension, Other Additional Past Medical Histor: Stage IV Kidney disease Past Surgical History: Colectomy Alcohol Use: None Drug Use: None Adult General Chief Complaint Chief Complaint: HYPERTENSION HPI HPI 78-year-old female returns emergency room with continued hypertension. She was seen by my colleague yesterday with hypertension. There were no significant abnormalities found at that time except for an elevated creatinine. This is a known problem for the patient. She comes in today because she took her medicati ons and still had the pressures in excess of 180s systolic. She is concerned about this and the risk for stroke. Patient is feeling normal otherwise. She denies headache, shortness breath, chest pain, fever or chills. Review of Systems Review of Systems Constitutional: Denies fever or chills [] Eyes: Denies change in visual acuity, redness, or eye pain [] HENT: Denies nasal congestion or sore throat [] Respiratory: Denies cough or shortness of breath [] Cardiovascular: No additional information not addressed in HPI [] GI: Denies abdominal pain, nausea, vomiting, bloody stools or diarrhea [] : Denies dysuria or hematuria [] Musculoskeletal: Denies back pain or joint pain [] Integument: Denies rash or skin lesions [] Neurologic: Denies headache, focal weakness or sensory changes [] Endocrine: Denies polyuria or polydipsia [] All other systems were reviewed and found to be within normal limits, except as documented in this note. Current Medications Current Medications Current Medications Medications (Trade) Dose Ordered Sig/Genna Start Time Stop Time Status Last Admin Dose Admin Carvedilol (Coreg) 25 mg 1X STAT 06/19/19 12:48 06/19/19 12:53 DC Losartan Potassium (Cozaar) 50 mg 1X STAT 06/19/19 12:48 06/19/19 12:53 DC Allergies Allergies Allergies Coded Allergies Type Severity Reaction Last Updated Verified No Known Drug Allergies 08/09/13 No Physical Exam Physical Exam Constitutional: Well developed, well nourished, no acute distress, non-toxic appearance. [] HENT: Normocephalic, atraumatic, bilateral external ears normal, oropharynx moist, no oral exudates, nose normal. [] Eyes: PERRLA, EOMI, conjunctiva normal, no discharge. [] Neck: Normal range of motion, no tenderness, supple, no stridor. [] Cardiovascular:Heart rate regular rhythm, no murmur [] Lungs & Thorax: Bilateral breath sounds clear to auscultation [] Abdomen: Bowel sounds normal, soft, no tenderness, no masses, no pulsatile masses. [] Skin: Warm, dry, no erythema, no rash. [] Back: No tenderness, no CVA tenderness. [] Extremities: No tenderness, no cyanosis, no clubbing, ROM intact, no edema. [] Neurologic: Alert and oriented X 3, normal motor function, normal sensory function, no focal deficits noted. [] Psychologic: Affect normal, judgement normal, mood normal. [] Current Patient Data Vital Signs Vital Signs Date Time Temp Pulse Resp B/P (MAP) Pulse Ox O2 Delivery O2 Flow Rate FiO2 06/19/19 11:49 98.3 68 16 100 Room Air Lab Results Laboratory Tests Test 06/19/19 12:31 White Blood Count 6.4 x10^3/uL (4.0-11.0) Red Blood Count 3.16 x10^6/uL (3.50-5.40) L Hemoglobin 9.9 g/dL (12.0-15.5) L Hematocrit 29.4 % (36.0-47.0) L Mean Corpuscular Volume 93 fL (79-100) Mean Corpuscular Hemoglobin 31 pg (25-35) Mean Corpuscular Hemoglobin Concent 34 g/dL (31-37) Red Cell Distribution Width 12.9 % (11.5-14.5) Platelet Count 372 x10^3/uL (140-400) Neutrophils (%) (Auto) 66 % (31-73) Lymphocytes (%) (Auto) 24 % (24-48) Monocytes (%) (Auto) 7 % (0-9) Eosinophils (%) (Auto) 3 % (0-3) Basophils (%) (Auto) 1 % (0-3) Neutrophils # (Auto) 4.2 x10^3uL (1.8-7.7) Lymphocytes # (Auto) 1.5 x10^3/uL (1.0-4.8) Monocytes # (Auto) 0.4 x10^3/uL (0.0-1.1) Eosinophils # (Auto) 0.2 x10^3/uL (0.0-0.7) Basophils # (Auto) 0.0 x10^3/uL (0.0-0.2) EKG EKG Sinus rhythm, rate 67, normal axis, no ST elevations or depressions.[] Radiology/Procedures Radiology/Procedures [] Impressions: CHEST AP ONLY History: Hypertension Comparison: July 23, 2013 Findings: Single view of the chest is submitted. There is no infiltrate, pneumothorax, or effusion. Pericardial cardiac silhouette is probably unchanged allowing for differences in degree of inspiration and technique. There are again postsurgical changes of the proximal right humerus. Impression: 1. No acute radiographic abnormality is identified. Electronically signed by: Tanika Romano MD (06/19/2019 12:28 PM) [id number] DICTATED AND SIGNED BY: TANIKA ROMANO MD DATE: 06/19/19 1228 CC: CLAUDIA PARKS DO; MARTIN MORRIS MD ~ Course & Med Decision Making Course & Med Decision Making Pertinent Labs and Imaging studies reviewed. (See chart for details) Patient's labs remarkable for a creatinine of 4.9. This is a known condition and is similar to previous. The rest for labs are unremarkable. Her chest x-ray is unremarkable. I will admit the patient for hypertension management. I spoke with Dr. Cruz and he has accepted the patient for admission. We will work with her consultant nurse to develop a blood pressure strategy. The patient is in agreement with this plan. [] Dragon Disclaimer Dragon Disclaimer This electronic medical record was generated, in whole or in part, using a voice recognition dictation system. Departure Departure: Impression: Primary Impression: Hypertension Disposition: 09 ADMITTED INPATIENT Admitting Physician: Alexx Cruz Condition: STABLE Referrals: MARTIN MORRIS MD (PCP) Problem Qualifiers Primary Impression: Hypertension Hypertension type: essential hypertension Qualified Codes: I10 - Essential (primary) hypertension CLAUDIA PARKS DO Jun 19, 2019 12:56
[2019-06-19 13:06] LABS: ALBUMIN 2.3 g/dL (3.4-5.0); ALBUMIN/GLOBULIN RATIO 0.5 (1.0-1.7); CALCIUM 8.7 mg/dL (8.5-10.1); CREATININE 4.9 mg/dL (0.6-1.0); GFR 10.4; POTASSIUM 4.5 mmol/L (3.5-5.1); TOTAL BILIRUBIN 0.5 mg/dL (0.2-1.0); TOTAL PROTEIN 7.3 g/dL (6.4-8.2)
[2019-06-19] MEDS ORDERED: cloNIDine HCL 0.1 MG TABLET PO ONE (13:15)
[2019-06-19] MEDS ORDERED: ONDANSETRON PF 4 MG/2 ML VIAL. IV PRN (14:30)
[2019-06-19] MEDS ORDERED: ACETAMINOPHEN 325 MG TABLET PO PRN (14:30)
[2019-06-19 15:15] VITALS: BP 178/82
[2019-06-19] MEDS ORDERED: NON FORMULARY ITEM (Insulin Aspart (Novolog) 1 UNIT) SQ SCH (16:30)
--- NOTE | 2019-06-19 16:36 | NUR ---
The patient, NICOL BOWER, 78 y/o, F admitted by ASIF TONEY MD, was given written information regarding hospital policies, unit procedures and contact persons. Valuables were checked and left with patient at bedside. Patient is a full code, admitted from ED with diagnosis of HTN . Blood pressure at admission 178/82. Dr. Toney verbally notified of admission at time of patient arrival. New orders were received. Patient is alert and oriented x 4, speech is clear, able to make wants and needs known and able to verbalize understanding of others. No negative moods or behaviors observed. Patient is cooperative with staff in all cares. Lungs CTA, RA , no cough or SOA present, respirations are equal and unlabored. Abdomen is soft and non tender with equal and active bowel sounds in all 4 quadrants, skin is in tact. HRR NSR, in 60's. Tele monitor. Stand by assist, continent of bowel and bladder. History of Stage 4 renal failure, no dialysis at this time. DM, ACHS, and HTN, GERD, impaired circulation. Patient has a 20g IV in RAC, SL. Patient is currently resting in bed at this time.
--- NOTE | 2019-06-19 16:41 | EKG ---
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
[2019-06-19] MEDS: CARVEDILOL 12.5 MG TABLET PO SCH (16:56)
[2019-06-19] MEDS: INSULIN LISPRO 300 UNITS/3 ML VIAL. SQ SCH (17:02)
--- NOTE | 2019-06-19 18:24 | HP ---
ADMIT DATE: 06/19/2019 HISTORY OF PRESENT ILLNESS: The patient is a 78-year-old -[place] female patient who was apparently seen yesterday in the Emergency Room for poorly controlled hypertension. 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 In fact, at the time she arrived to the Emergency Room, her blood pressure was 188/67; at home, it was even higher and therefore, a decision was made to admit her to adjust her antihypertensive medications. PAST MEDICAL HISTORY: Significant for type 2 diabetes that has been longstanding for more than 30 years, hypertension, hyperlipidemia, chronic kidney disease, transient ischemic attack, and sarcoidosis. PAST SURGICAL HISTORY: Significant for bilateral cataract extraction. She also has macular degeneration and questionable due to sarcoidosis. She has had cholecystectomy, right shoulder rotator cuff repair and left middle finger fracture, status post open reduction and internal fixation, has also total abdominal hysterectomy and bilateral salpingo-oophorectomy. ALLERGIES: She has no known drug allergies. MEDICATIONS: She is currently on following medications: She is on pentoxifylline 400 mg 3 times a day, carvedilol 25 mg twice a day, losartan 100 mg once a day, timolol maleate 1 drop to both eyes twice a day, famotidine 20 mg twice a day, Protonix 40 mg once a day, NovoLog insulin as insulin sliding scale before meals and Lantus insulin 30 units at bedtime, Nephro-Aman 1 capsule once a day. FAMILY HISTORY: She has 2 brothers and 1 sister, all younger and . Her older brother of hypertension, end-stage renal disease. Her sister of what seems to be status epilepticus and her baby brother at age of 22 because of obscure cancer. Her mother at the age of 25 and father at age of 23 and had sarcoidosis. SOCIAL HISTORY: She is , has 7 daughters and 3 sons. She does not smoke, drink alcohol or use any recreational drugs. REVIEW OF SYSTEMS: The patient seems to have what seemed to be glaucoma and perhaps macular degeneration, diabetic retinopathy. Denied any earache, tinnitus or sensorineural deafness. Denied any nosebleeds, stuffy nose or postnasal drip. Denied any sore throat, sore tongue, toothache, hoarseness of voice, difficulty swallowing. Denied any hematemesis, melena or hematochezia. Denied any dysuria, frequency or hematuria. Denied any chest pain, shortness of breath, orthopnea, paroxysmal nocturnal dyspnea. Denied any cough, phlegm or hemoptysis. Did complain of being dizzy and lightheaded this morning. PHYSICAL EXAMINATION: GENERAL: On arrival to the Emergency Room, she looked well and was clearly in no apparent respiratory distress. No pallor, jaundice, cyanosis or thyromegaly. No jugular venous distention. No lower limb edema. VITAL SIGNS: Her heart rate was 69, blood pressure was 188/67, temperature was 98.3, respiratory rate was 16, and oxygen saturation was 100% on room air. HEAD, EYES, EARS, NOSE AND THROAT: Showed normocephalic, atraumatic. NECK: Supple. HEART: Showed normal first and second heart sounds. No gallop or murmur. CHEST: Clear to auscultation. No crepitation or rhonchi. ABDOMEN: Distended, soft, nontender. NEUROLOGIC: She was awake, alert, responding appropriately. All cranial nerves intact. EXTREMITIES: She moves extremities without difficulty. She ambulates without assistance or assistive devices. LABORATORY DATA: On arrival this morning showed a white cell count of 6400, hemoglobin 10, hematocrit 30, MCV 93, and platelet count 372,000. Her chemistry showed a serum sodium 136, potassium 4.5, chloride 104, bicarbonate 22, anion gap of 10, BUN 32, creatinine 4.9, estimated GFR is 10 mL per minute. Her glucose was 163 and calcium was 8.7. Total bilirubin, AST, ALT, alkaline phosphatase were normal. Total protein was 7.3, albumin was 2.3. Her urinalysis showed that the urine was yellow, hazy with a pH of 5, specific gravity of 1.020, there was large amount of protein, large amount of glucose, trace of ketones, moderate amount of blood, negative for nitrite and leukocyte esterase. There are rare rbc's, 1-4 wbc's, moderate amount of bacteria. Her chest x-ray showed that there is no infiltrate, pneumothorax or effusion, pericardial cardiac silhouette is probably unchanged allowing for difference in degree of inspiration and technique. There are again postsurgical changes of the proximal right humerus, no acute radiographic abnormalities identified. The patient was admitted basically with poorly controlled hypertension or accelerated hypertension. My plan is to increase her diltiazem to 120 mg and from tomorrow will increase the dose to 240 mg. Continue with losartan and Coreg. I will contact Dr. Link Casillas tomorrow given that her creatinine has dramatically risen from 1.9 to 4.6 in a span of about 8 months and unfortunately I do not have any other values to compare with, to see this dramatic acceleration in her kidney function. ASIF TONEY MD DR: ALYSSA/marquise JOB#: [id number] / [id number]
[2019-06-19 20:35] VITALS: BP 167/75
[2019-06-19] MEDS ORDERED: INSULIN GLARGINE HUM REC ANLOG 30 UNIT SQ SCH (21:00)
[2019-06-19] MEDS: TIMOLOL 0.5% OPHTH SOLUTION 5ML BOTTLE. OU SCH (22:35)
[2019-06-19] MEDS: PENTOXIFYLLINE ER 400 MG TABLET.ER. PO SCH (22:35)
[2019-06-19] MEDS: FAMOTIDINE 20 MG TABLET PO SCH (22:35)
[2019-06-19] MEDS: INSULIN GLARGINE SYRINGE. SQ SCH (22:44)
[2019-06-19 23:50] VITALS: BP 176/84
[2019-06-20 07:00] VITALS: BP 195/85
[2019-06-20] MEDS ORDERED: PANTOPRAZOLE 40 MG TABLET. PO SCH (07:30)
[2019-06-20] MEDS: CARVEDILOL 12.5 MG TABLET PO SCH ×2 (07:51→17:11)
[2019-06-20] MEDS: PENTOXIFYLLINE ER 400 MG TABLET.ER. PO SCH ×3 (07:52→20:36)
[2019-06-20] MEDS: TIMOLOL 0.5% OPHTH SOLUTION 5ML BOTTLE. OU SCH ×2 (07:57→20:36)
[2019-06-20] MEDS: INSULIN LISPRO 300 UNITS/3 ML VIAL. SQ SCH ×3 (08:00→17:09)
[2019-06-20] MEDS ORDERED: FOLIC/VIT B COMP W-C (RENAL) TABLET. PO SCH (09:00)
[2019-06-20] MEDS ORDERED: LOSARTAN 50 MG TABLET. PO SCH (09:00)
--- NOTE | 2019-06-20 09:27 | RAD ---
Renal ultrasound complete History: Decreased renal function Sonographic examination of the kidneys was performed and multiple static images were obtained. Right kidney: The right kidney is seen with no hydronephrosis and measures 10.6 cm in length. Left kidney: The left kidney is seen with no hydronephrosis and measures 10.2 cm in length. Urinary bladder: The urinary bladder appears within normal limits. Impression: No hydronephrosis. Electronically signed by: Rod Lane III, MD (06/20/2019 9:25 AM) [facility]
[2019-06-20 11:04] VITALS: BP 145/72
[2019-06-20] MEDS ORDERED: DEXTROSE 50% 25 GM / 50ML DISP.SYRIN. IV PRN (12:00)
[2019-06-20 14:25] VITALS: BP 136/72
[2019-06-20 15:52] LABS: CALCIUM 8.2 mg/dL (8.5-10.1); CREATININE 5.2 mg/dL (0.6-1.0); GFR 9.7; POTASSIUM 4.4 mmol/L (3.5-5.1)
[2019-06-20 19:32] VITALS: BP 165/78
[2019-06-20] MEDS: FAMOTIDINE 20 MG TABLET PO SCH (20:36)
[2019-06-20] MEDS: INSULIN GLARGINE SYRINGE. SQ SCH (20:42)
--- NOTE | 2019-06-20 21:00 | NUR ---
Discharge Note: PT TRANSFERRING TO [facility] FOR NEPHROLOGY CONSULT FOR DIALYSIS. PT AND FAMILY AGREEABLE TO TRANSFER. REPORT CALLED TO YAN NUNEZ. NICOL BOWER [address] [place] [address] Discharge instructions and discharge home medications reviewed with Other facility and a copy given. All questions have been answered and understanding verbalized. The following instructions and handouts were given: MED REC, ORDERS, CHART COPIED. Discontinued lines and drains: Peripheral IV REMAINS IN PLACE. Patient discharged to [facility] ROOM 652 with Ambulance Personnel via Stretcher. ALL BELONGINGS SENT WITH PT.
--- NOTE | 2019-06-21 00:40 | DS ---
DATE OF DISCHARGE: 06/20/2019 HOSPITAL COURSE: The patient is a 78-year-old -[place] male patient, who was admitted originally for hypertensive urgency; however, her creatinine has been steadily rising and yesterday her creatinine was 4.5 mg/dL and today went up to 5.2. I did speak with Dr. Link Casillas and his also nurse practitioner and apparently they were planning to start dialysis and Dr. Casillas recommended the patient be transferred to [facility] to start hemodialysis temporarily and eventually to go on peritoneal dialysis. PHYSICAL EXAMINATION: GENERAL: When I saw her today, she looked well and was clearly in no apparent respiratory distress, somewhat pale, but no jaundice, cyanosis or thyromegaly. No jugular venous distention. No limb edema. VITAL SIGNS: Her heart rate was 53, blood pressure was 136/72, temperature was 98, respiratory rate was 20, and oxygen saturation was 98%. HEAD, EYES, EARS, NOSE AND THROAT: Normocephalic, atraumatic. NECK: Supple. CARDIAC: Normal first and second heart sounds. No gallop or murmur. CHEST: Clear to auscultation. No crepitation or rhonchi. ABDOMEN: Distended, soft, nontender. NEUROLOGIC: She is awake, alert, responding appropriately. All cranial nerves intact. EXTREMITIES: She moves extremities without difficulty. She ambulates without assistance or assistive devices. Her intake over the last 24 hours was 618, output was not recorded. LABORATORY DATA: Her serum sodium was 136, potassium 4.4, chloride 103, bicarbonate 23, anion gap of 10, BUN 33, creatinine 5.2, estimated GFR was 9.7, glucose was 267 and calcium was 8.2. Her white cell count was 6400, hemoglobin 10, hematocrit 29, MCV 93, and platelet count of 372,000. DISCHARGE MEDICATIONS: She was transferred to [facility] to continue on diltiazem 240 mg once a day, losartan potassium 100 mg once a day, Nephro-Aman 1 tablet once a day, Protonix 40 mg once a day, Lantus 30 units at bedtime, pentoxifylline 400 mg 3 times a day, timolol maleate 1 drop twice a day, famotidine 20 mg once a day and carvedilol 25 mg twice a day. FINAL DISCHARGE DIAGNOSES: End-stage renal disease, for which we will start her on temporary hemodialysis and we will consult the surgical team to place a peritoneal dialysis catheter. Other medical problems include type 2 diabetes mellitus, hypertension, hyperlipidemia, transient ischemic attack and sarcoidosis. ASIF TONEY MD DR: ALYSSA/marquise JOB#: [id number] / [id number]
== END 2019-06-20 20:55 | disposition short-term general hospital (02) | DRG 304 ==
LOC: ER 11:47 → 1 SOUTH 14:42
PROVIDERS: ADMIT Internal Medicine; ATTEND Internal Medicine
DX: I16.0 Hypertensive urgency (principal); N18.6 End stage renal disease; I12.0 Hypertensive chronic kidney disease with stage 5 chronic kidney disease or end stage renal disease; D86.9 Sarcoidosis, unspecified; E78.5 Hyperlipidemia, unspecified; E11.22 Type 2 diabetes mellitus with diabetic chronic kidney disease; Z86.73 Personal history of transient ischemic attack (TIA), and cerebral infarction without residual deficits; Z98.42 Cataract extraction status, left eye; Z98.41 Cataract extraction status, right eye; Z90.710 Acquired absence of both cervix and uterus; Z90.49 Acquired absence of other specified parts of digestive tract; Z99.2 Dependence on renal dialysis
CPT/HCPCS: 36415; 71045; 74176; 76770; 80048; 80053; 82947; 83690; 84484; 85025; 93005; J1815; 99285-25

== ENCOUNTER 2019-07-03 03:11 | Emergency (ER) | payer MEDICARE, OTHER ==
[~2019-07-03] VITALS: Ht 160 cm; Wt 67.1 kg
--- NOTE | 2019-07-03 03:22 | EKG ---
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
--- NOTE | 2019-07-03 03:37 | PHYS DOC ---
Past History Past Medical History: Diabetes, Hypertension, Other Additional Past Medical Histor: Stage IV Kidney disease Past Surgical History: Cholecystectomy, Colectomy, Hysterectomy Alcohol Use: None Drug Use: None Adult General Chief Complaint Chief Complaint: SHORTNESS OF BREATH HPI HPI 78-year-old female presents for shortness of breath. The patient was at home and when she woke up she felt short of air. She checked her blood pressure and it was 207/94. She was very concerned with this and decided to come the emergency room. The patient was just recently placed dialysis. She has a access point in her chest. We have also placed on her abdomen for home peritoneal dialysis. This is not being used yet. The patient has had her blood pressure medicines changed since going on dialysis. She is unsure which medicines were changed how. She was seen in this emergency room a couple weeks ago and sent to [place]. This is how she ended up on dialysis due to kidney issues previously undiagnosed. She is coming to the emergency room, the patient states that the shortness of breath is still there, but it is better. She is due for dialysis later today. She denies fever or chills. Review of Systems Review of Systems Constitutional: Denies fever or chills [] Eyes: Denies change in visual acuity, redness, or eye pain [] HENT: Denies nasal congestion or sore throat [] Respiratory: shortness of breath [] Cardiovascular: No additional information not addressed in HPI [] GI: Denies abdominal pain, nausea, vomiting, bloody stools or diarrhea [] : Denies dysuria or hematuria [] Musculoskeletal: Denies back pain or joint pain [] Integument: Denies rash or skin lesions [] Neurologic: Denies headache, focal weakness or sensory changes [] Endocrine: Denies polyuria or polydipsia [] All other systems were reviewed and found to be within normal limits, except as documented in this note. Allergies Allergies Allergies Coded Allergies Type Severity Reaction Last Updated Verified No Known Drug Allergies 08/09/13 No Physical Exam Physical Exam Constitutional: Well developed, well nourished, no acute distress, non-toxic appearance. [] HENT: Normocephalic, atraumatic, bilateral external ears normal, oropharynx moist, no oral exudates, nose normal. [] Eyes: PERRLA, EOMI, conjunctiva normal, no discharge. [] Neck: Normal range of motion, no tenderness, supple, no stridor. [] Cardiovascular:Heart rate regular rhythm, no murmur [] Lungs & Thorax: Bilateral breath sounds clear to auscultation [] Abdomen: Bowel sounds normal, soft, no tenderness, no masses, no pulsatile masses. [] Skin: Dialysis catheter right chest[] Back: No tenderness, no CVA tenderness. [] Extremities: No tenderness, no cyanosis, no clubbing, ROM intact, no edema. [] Neurologic: Alert and oriented X 3, normal motor function, normal sensory function, no focal deficits noted. [] Psychologic: Affect normal, judgement normal, mood normal. [] Current Patient Data Vital Signs Vital Signs Date Time Temp Pulse Resp B/P (MAP) Pulse Ox O2 Delivery O2 Flow Rate FiO2 07/03/19 03:21 97.9 76 26 100 Room Air EKG EKG Sinus rhythm, rate 79, normal axis, no ST elevations or depressions.[] Radiology/Procedures Radiology/Procedures [] Impressions: INDICATION: Shortness of breath COMPARISON: June 19, 2019 FINDINGS: Single view of chest obtained. Cardiac silhouette is prominent in size. Right-sided central venous catheter with tip near atriocaval junction. Mild blunting of the costophrenic angles. Appearance the lungs similar to prior IMPRESSION: * Mild blunting of costophrenic angles which could be from pleural thickening or small pleural effusion. * Enlarged cardiac silhouette again seen Electronically signed by: Dilam Fitch MD (07/03/2019 5:43 AM) [facility] DICTATED AND SIGNED BY: DILMA FITCH MD DATE: 07/03/19 0543 CC: CLAUDIA PARKS DO; MARTIN MORRIS MD ~ Course & Med Decision Making Course & Med Decision Making Pertinent Labs and Imaging studies reviewed. (See chart for details) The patient's hemoglobin is 9.5. This is similar to previous in the chart. Her creatinine is 3.7 which is an improvement from recent creatinines. Patient's troponin is negative. Her EKG is unremarkable. Her chest x-ray does suggest possible small pleural effusions. Her proBNP is 2193, patient is due for dialysis today. This could be contributing to her shortness of breath. The patient had elevated blood pressure for which I gave her 0.1 of clonidine and an additional 10 mg hydralazine. It is now improved to 149/75. For the patient's headache, given her 5 mg of Reglan and 25 mg of Benadryl. She is feeling a bit better at this time. She feels like she can go home. I spoke with family answer other questions. She is stable for discharge at this time. [] Dragon Disclaimer Dragon Disclaimer This electronic medical record was generated, in whole or in part, using a voice recognition dictation system. Departure Departure: Impression: Primary Impression: Shortness of breath Additional Impressions: End stage renal disease Headache Hypertension Disposition: HOME, SELF-CARE Condition: STABLE Referrals: MARTIN MORRIS MD (PCP) Patient Instructions: Shortness of Breath, [id number] Problem Qualifiers Additional Impressions: Headache Headache type: other vascular headache Qualified Codes: G44.1 - Vascular headache, not elsewhere classified CLAUDIA PARKS DO Jul 03, 2019 03:37
[2019-07-03] MEDS ORDERED: cloNIDine HCL 0.1 MG TABLET PO ONE (04:15)
[2019-07-03] MEDS ORDERED: hydrALAZINE 20 MG/ML VIAL. IV ONE (05:00)
[2019-07-03] MEDS ORDERED: METOCLOPRAMIDE HCL 10 MG/2 ML VIAL. IVP ONE (05:00)
[2019-07-03] MEDS ORDERED: diphenhydrAMINE 50 MG/ML VIAL IVP ONE (05:00)
[2019-07-03 05:10] LABS: BASO % 1 % (0-3); EOS # 0.6 x10^3/uL (0.0-0.7); EOS % 6 % (0-3); HEMATOCRIT 28.5 % (36.0-47.0); HEMOGLOBIN 9.5 g/dL (12.0-15.5); LYMPH # 2.6 x10^3/uL (1.0-4.8); LYMPH % 26 % (24-48); MEAN CORPUSCULAR HEMOGLOBIN 31 pg (25-35); MEAN CORPUSCULAR HGB CONC 33 g/dL (31-37); MEAN CORPUSCULAR VOLUME 93 fL (79-100); MONO # 1.1 x10^3/uL (0.0-1.1); MONO % 11 % (0-9); NEUT # 5.9 x10^3uL (1.8-7.7); NEUT % 57 % (31-73); PLATELET COUNT 229 x10^3/uL (140-400); RED BLOOD COUNT 3.08 x10^6/uL (3.50-5.40); RED CELL DISTRIBUTION WIDTH 12.6 % (11.5-14.5); WHITE BLOOD COUNT 10.2 x10^3/uL (4.0-11.0)
[2019-07-03 05:29] LABS: ALBUMIN 2.4 g/dL (3.4-5.0); ALBUMIN/GLOBULIN RATIO 0.5 (1.0-1.7); CALCIUM 8.3 mg/dL (8.5-10.1); CREATININE 3.7 mg/dL (0.6-1.0); GFR 14.4; POTASSIUM 3.9 mmol/L (3.5-5.1); TOTAL BILIRUBIN 0.3 mg/dL (0.2-1.0); TOTAL PROTEIN 6.8 g/dL (6.4-8.2)
[2019-07-03 05:30] VITALS: BP 149/75
--- NOTE | 2019-07-03 05:46 | RAD ---
INDICATION: Shortness of breath COMPARISON: June 19, 2019 FINDINGS: Single view of chest obtained. Cardiac silhouette is prominent in size. Right-sided central venous catheter with tip near atriocaval junction. Mild blunting of the costophrenic angles. Appearance the lungs similar to prior IMPRESSION: * Mild blunting of costophrenic angles which could be from pleural thickening or small pleural effusion. * Enlarged cardiac silhouette again seen Electronically signed by: Mark Fitch MD (07/03/2019 5:43 AM) [facility]
== END 2019-07-03 06:00 | disposition home or self-care (01) ==
LOC: ER 03:11
DX: E11.22 Type 2 diabetes mellitus with diabetic chronic kidney disease (principal); I12.0 Hypertensive chronic kidney disease with stage 5 chronic kidney disease or end stage renal disease; N18.6 End stage renal disease; R06.02 Shortness of breath; G44.1 Vascular headache, not elsewhere classified; Z99.2 Dependence on renal dialysis
CPT/HCPCS: 36415; 71045; 80053; 83880; 84484; 85025; 93005; 96374; 96375; 99285; J0360; J1200; J2765

== ENCOUNTER 2019-07-08 13:06 | Emergency (ER) | payer MEDICARE, OTHER ==
[~2019-07-08] VITALS: Ht 160 cm; Wt 67.6 kg
--- NOTE | 2019-07-08 13:38 | PHYS DOC ---
Past History Past Medical History: Diabetes, Hypertension, Other Additional Past Medical Histor: Stage IV Kidney disease Past Surgical History: Cholecystectomy, Colectomy, Hysterectomy Alcohol Use: None Drug Use: None Adult General Chief Complaint Chief Complaint: ALTERED MENTAL STATUS HPI HPI Patient is a 78-year-old female presents with altered mental status. She was last seen normal at approximately 2:00 this morning. Patient has recently started dialysis. She was brought in by EMS who noted that her fingerstick blood sugar was 440, they started IV access and started IV fluids. History is limited from the patient due to altered mental status.[] Review of Systems Review of Systems Unable to obtain due to altered mental status All other systems were reviewed and found to be within normal limits, except as documented in this note. Allergies Allergies Allergies Coded Allergies Type Severity Reaction Last Updated Verified No Known Drug Allergies 08/09/13 No Physical Exam Physical Exam Constitutional: Well developed, well nourished, no acute distress, non-toxic appearance. [] HENT: Normocephalic, atraumatic, bilateral external ears normal, oropharynx moist, no oral exudates, nose normal. [] Eyes: PERRLA, EOMI, conjunctiva normal, no discharge. [] Neck: Normal range of motion, no tenderness, supple, no stridor. [] Cardiovascular:Heart rate regular rhythm, no murmur [] Lungs & Thorax: Bilateral breath sounds clear to auscultation, right chest dialysis port appears clean and dry, no erythema [] Abdomen: Bowel sounds normal, soft, no tenderness, no masses, no pulsatile masses. Abdominal peritoneal dialysis site appears clean and dry [] Skin: Warm, dry, no erythema, no rash. [] Back: No tenderness, no CVA tenderness. [] Extremities: No tenderness, no cyanosis, no clubbing, no edema. [] Neurologic: GCS8 E2, M4 V8, normal motor function, normal sensory function, no focal deficits noted. [] Psychologic: Unable to assess. [] Current Patient Data Lab Results Laboratory Tests Test 07/08/19 13:12 Glucose (Fingerstick) 347 mg/dL (70-99) H EKG EKG EKG shows a sinus rhythm at 82 bpm, normal axis, QTC of 440 ms, no ST elevation. Interpreted by me at 1321[] Radiology/Procedures Radiology/Procedures PROCEDURE: CT ABDOMEN PELVIS WO CONTRAST PQRS Compliance Statement: One or more of the following individualized dose reduction techniques were utilized for this examination: 1. Automated exposure control 2. Adjustment of the mA and/or kV according to patient size 3. Use of iterative reconstruction technique CT ABDOMEN PELVIS WO CONTRAST Clinical Indication: Mental status change, peritoneal dialysis port placement. Comparison: CT abdomen and pelvis without contrast, June 18, 2019. Technique: Helical CT imaging of the abdomen and pelvis is performed without IV or oral contrast. Findings: Evaluation of solid organs and bowel is limited without oral and IV contrast, decreasing sensitivity for detection of pathology. Small bilateral pleural effusions. Compressive atelectasis bilateral lower lobes. Cardiac size normal. Minimal right subphrenic ascites. Cholecystectomy. Minimal fluid along the right paracolic gutter inferior to the liver. Liver, spleen, pancreas, and adrenal glands are normal. Small right renal cyst. Small left renal cyst. No hydronephrosis. The abdominal aorta is normal caliber. Stomach is not well distended, limiting evaluation. There is peritoneal dialysis catheter that enters the peritoneal cavity left periumbilical and courses inferiorly. Distal portion is in the left pelvis. There is minimal associated free fluid. There is haziness of the central mesentery, unchanged. There is no dilated small bowel. The appendix is normal. There is respiratory motion artifact in the lower abdomen, limiting evaluation. Moderate colon diverticulosis. No colon wall thickening. Yip catheter in the urinary bladder. Mild to moderate pelvic free fluid. No acute bone abnormality. IMPRESSION: 1. There is peritoneal dialysis catheter. Mild to moderate pelvic free fluid. Minimal right subphrenic ascites. Minimal fluid along the right paracolic gutter. 2. Small bilateral pleural effusions. Compressive atelectasis in the bilateral lower lobes. 3. Moderate colon diverticulosis. PROCEDURE: PORTABLE CHEST 1V PORTABLE CHEST 1V INDICATION: Altered mental status. COMPARISON STUDY: 07/03/2019. FINDINGS: Right IJ dual-lumen catheter Lungs: Low lung volume. Bilateral perihilar opacities. Indistinct pulmonary vasculature. Pleura: Pleural thickening versus trace bilateral pleural effusions. Heart and Mediastinum: Cardiomegaly. Great vessels of the thorax are stable. IMPRESSION: Low lung volume with bilateral perihilar opacities, which may represent subsegmental atelectasis and/or interstitial edema. Pleural thickening versus trace bilateral pleural effusions. PROCEDURE: CT HEAD WO CONTRAST PQRS Compliance Statement: One or more of the following individualized dose reduction techniques were utilized for this examination: 1. Automated exposure control 2. Adjustment of the mA and/or kV according to patient size 3. Use of iterative reconstruction technique CT HEAD WITHOUT CONTRAST History: Mental status change. Comparison: MR brain without contrast, September 11, 2014. Technique: Axial images are obtained of the head from the skull base through the vertex without IV contrast. Findings: No mass-effect, midline shift, extra-axial fluid collection, hemorrhage, or obvious acute infarction is identified. Basilar cisterns are patent. The ventricles and sulci are normal. There is mild supratentorial white matter hypoattenuation. This is a nonspecific finding but is commonly due to chronic small vessel ischemic disease. Old left basal ganglia lacunar infarct. Bone windows demonstrate no acute calvarial abnormality. The visualized paranasal sinuses are clear. Mastoid air cells are well aerated. IMPRESSION: 1. No acute intracranial abnormality. 2. Old left basal ganglia lacunar infarct.[] Course & Med Decision Making Course & Med Decision Making Pertinent Labs and Imaging studies reviewed. (See chart for details) Emergency department course: Patient arrived, was placed in bed, tolerated exam, noted to have a good gag reflex. Further history provided by family. reports that approximately 8:00 this morning he help the patient to the restroom and she was unsteady with her gait and making similar incomprehensible sounds at that point to what she is making now when he asked her if she was hurting anywhere. He denies that she has been sick recently, no fevers. She was transported to and from radiology with any complications. She was given labetalol for significantly elevated blood pressure. Consultation was made with the hospitalist service at [facility]. Due to not having neurology as well as MR I capabilities nor nephrology services, he elected to have the patient transferred to a facility which had those available. Consultation was made with the hospitalist at [facility] who graciously accepted the patient. Medical decision making: Patient with an encephalopathy, this may be multifactorial between metabolic as well as hypertensive components. There is no evidence of a mass or bleed. No evidence of urinary tract infection. Unable to ascertain a stroke syndrome due to her decreased GCS. [] Dragon Disclaimer Dragon Disclaimer This electronic medical record was generated, in whole or in part, using a voice recognition dictation system. Departure Departure: Impression: Primary Impression: Encephalopathy acute Additional Impressions: End stage renal disease Hyperglycemia Disposition: 05 TRANSFER OTHER Condition: IMPROVED Referrals: MARTIN MORRIS MD (PCP) Problem Qualifiers ZORAN MELGAR DO Jul 08, 2019 13:38
[2019-07-08 14:00] LABS: BASO # 0.2 x10^3/uL (0.0-0.2); BASO % 2 % (0-3); EOS # 0.7 x10^3/uL (0.0-0.7); EOS % 7 % (0-3); HEMATOCRIT 29.3 % (36.0-47.0); HEMOGLOBIN 9.4 g/dL (12.0-15.5); LYMPH # 1.5 x10^3/uL (1.0-4.8); LYMPH % 14 % (24-48); MEAN CORPUSCULAR HEMOGLOBIN 30 pg (25-35); MEAN CORPUSCULAR HGB CONC 32 g/dL (31-37); MEAN CORPUSCULAR VOLUME 93 fL (79-100); MONO % 9 % (0-9); NEUT # 7.6 x10^3uL (1.8-7.7); NEUT % 69 % (31-73); PLATELET COUNT 329 x10^3/uL (140-400); RED BLOOD COUNT 3.13 x10^6/uL (3.50-5.40); RED CELL DISTRIBUTION WIDTH 12.6 % (11.5-14.5)
[2019-07-08 14:03] LABS: AMPHETAMINE/METHAMPHETAMINE NEG (NEG); BARBITURATES NEG (NEG); BENZODIAZEPINES NEG (NEG); CANNABINOIDS NEG (NEG); COCAINE NEG (NEG); METHADONE NEG (NEG); OPIATES NEG (NEG); PHENCYCLIDINE NEG (NEG)
[2019-07-08 14:06] LABS: COLOR,URINE YELLOW
[2019-07-08 14:07] LABS: BILIRUBIN,URINE NEG (NEG); CLARITY,URINE CLEAR; GLUCOSE,URINE 500 mg/dL (NEG); NITRITE,URINE NEG (NEG); RBC,URINE OCC /HPF (0-2); UROBILINOGEN,URINE 0.2 mg/dL (0.2 mg/dL)
[2019-07-08 14:08] LABS: BACTERIA,URINE 0 /HPF (0-FEW); GRANULAR CASTS,URINE OCC /HPF; SQUAMOUS EPITHELIAL CELL,UR OCC /LPF; WBC,URINE OCC /HPF (0-4)
[2019-07-08 14:16] LABS: ALBUMIN 2.2 g/dL (3.4-5.0); ALBUMIN/GLOBULIN RATIO 0.5 (1.0-1.7); CALCIUM 8.4 mg/dL (8.5-10.1); CREATININE 3.8 mg/dL (0.6-1.0); MAGNESIUM 2.3 mg/dL (1.8-2.4); POTASSIUM 4.2 mmol/L (3.5-5.1); TOTAL BILIRUBIN 0.3 mg/dL (0.2-1.0); TOTAL PROTEIN 6.8 g/dL (6.4-8.2)
--- NOTE | 2019-07-08 14:28 | RAD ---
RS Compliance Statement: One or more of the following individualized dose reduction techniques were utilized for this examination: 1. Automated exposure control 2. Adjustment of the mA and/or kV according to patient size 3. Use of iterative reconstruction technique CT HEAD WITHOUT CONTRAST History: Mental status change. Comparison: MR brain without contrast, September 11, 2014. Technique: Axial images are obtained of the head from the skull base through the vertex without IV contrast. Findings: No mass-effect, midline shift, extra-axial fluid collection, hemorrhage, or obvious acute infarction is identified. Basilar cisterns are patent. The ventricles and sulci are normal. There is mild supratentorial white matter hypoattenuation. This is a nonspecific finding but is commonly due to chronic small vessel ischemic disease. Old left basal ganglia lacunar infarct. Bone windows demonstrate no acute calvarial abnormality. The visualized paranasal sinuses are clear. Mastoid air cells are well aerated. IMPRESSION: 1. No acute intracranial abnormality. 2. Old left basal ganglia lacunar infarct. Electronically signed by: Luis Wilks MD (07/08/2019 2:25 PM) [facility]
[2019-07-08] MEDS ORDERED: LABETALOL 20 MG/4 ML DISP.SYRIN. IVP ONE ×2 (14:45→15:15)
--- NOTE | 2019-07-08 14:47 | RAD ---
PQRS Compliance Statement: One or more of the following individualized dose reduction techniques were utilized for this examination: 1. Automated exposure control 2. Adjustment of the mA and/or kV according to patient size 3. Use of iterative reconstruction technique CT ABDOMEN PELVIS WO CONTRAST Clinical Indication: Mental status change, peritoneal dialysis port placement. Comparison: CT abdomen and pelvis without contrast, June 18, 2019. Technique: Helical CT imaging of the abdomen and pelvis is performed without IV or oral contrast. Findings: Evaluation of solid organs and bowel is limited without oral and IV contrast, decreasing sensitivity for detection of pathology. Small bilateral pleural effusions. Compressive atelectasis bilateral lower lobes. Cardiac size normal. Minimal right subphrenic ascites. Cholecystectomy. Minimal fluid along the right paracolic gutter inferior to the liver. Liver, spleen, pancreas, and adrenal glands are normal. Small right renal cyst. Small left renal cyst. No hydronephrosis. The abdominal aorta is normal caliber. Stomach is not well distended, limiting evaluation. There is peritoneal dialysis catheter that enters the peritoneal cavity left periumbilical and courses inferiorly. Distal portion is in the left pelvis. There is minimal associated free fluid. There is haziness of the central mesentery, unchanged. There is no dilated small bowel. The appendix is normal. There is respiratory motion artifact in the lower abdomen, limiting evaluation. Moderate colon diverticulosis. No colon wall thickening. Yip catheter in the urinary bladder. Mild to moderate pelvic free fluid. No acute bone abnormality. IMPRESSION: 1. There is peritoneal dialysis catheter. Mild to moderate pelvic free fluid. Minimal right subphrenic ascites. Minimal fluid along the right paracolic gutter. 2. Small bilateral pleural effusions. Compressive atelectasis in the bilateral lower lobes. 3. Moderate colon diverticulosis. Electronically signed by: Luis Wilks MD (07/08/2019 2:44 PM) [facility]
--- NOTE | 2019-07-08 14:51 | RAD ---
PORTABLE CHEST 1V INDICATION: Altered mental status. COMPARISON STUDY: 07/03/2019. FINDINGS: Right IJ dual-lumen catheter Lungs: Low lung volume. Bilateral perihilar opacities. Indistinct pulmonary vasculature. Pleura: Pleural thickening versus trace bilateral pleural effusions. Heart and Mediastinum: Cardiomegaly. Great vessels of the thorax are stable. IMPRESSION: Low lung volume with bilateral perihilar opacities, which may represent subsegmental atelectasis and/or interstitial edema. Pleural thickening versus trace bilateral pleural effusions. Electronically signed by: Chalo Martin MD (07/08/2019 2:49 PM) [facility]
[2019-07-08 15:06] VITALS: BP 187/81
[2019-07-08] MEDS ORDERED: LABETALOL 100 MG/20 ML VIAL. IV ONE (16:15)
[2019-07-09] MEDS ORDERED: traMADol 50 MG TABLET PO PRN (08:30)
[2019-07-09] MEDS ORDERED: hydrALAZINE 10 MG TABLET PO SCH (09:00)
[2019-07-09] MEDS ORDERED: PENTOXIFYLLINE ER 400 MG TABLET.ER. PO SCH (09:00)
[2019-07-09] MEDS ORDERED: VITAMIN B COMP W C PO SCH (09:00)
[2019-07-09] MEDS ORDERED: NON FORMULARY ITEM (Losartan/Hydrochlorothiazide (Losartan-Hctz 100-25 Mg Tab) 1 TAB) PO SCH (09:00)
[2019-07-09] MEDS ORDERED: FOLIC ACID PO SCH (09:00)
[2019-07-09] MEDS ORDERED: CARVEDILOL 12.5 MG TABLET PO SCH (09:00)
[2019-07-09] MEDS ORDERED: TIMOLOL 0.5% OPHTH SOLUTION 5ML BOTTLE. OU SCH (09:00)
[2019-07-09] MEDS ORDERED: PANTOPRAZOLE 40 MG TABLET. PO SCH (09:00)
[2019-07-09] MEDS ORDERED: NON FORMULARY ITEM (Insulin Aspart (Novolog) 1 UNIT) SQ SCH (11:30)
[2019-07-09] MEDS ORDERED: INSULIN GLARGINE HUM REC ANLOG 30 UNIT SQ SCH (21:00)
--- NOTE | 2019-07-10 06:13 | EKG ---
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
== END 2019-07-08 16:10 | disposition short-term general hospital (02) ==
LOC: ER 13:06
DX: I67.4 Hypertensive encephalopathy (principal); I12.0 Hypertensive chronic kidney disease with stage 5 chronic kidney disease or end stage renal disease; E11.22 Type 2 diabetes mellitus with diabetic chronic kidney disease; N18.6 End stage renal disease; Z99.2 Dependence on renal dialysis
CPT/HCPCS: 36415; 51702; 70450; 71045; 74176; 80053; 80307; 81001; 82010; 82140; 82947; 83735; 83880; 84484; 85025; 85610; 85730; 87040; 93005; 96374; 99285; G0480; J3490

== ENCOUNTER 2019-07-19 03:02 | Emergency (ER) | payer MEDICARE, OTHER ==
[~2019-07-19] VITALS: Ht 160 cm; Wt 68.0 kg
--- NOTE | 2019-07-19 03:20 | PHYS DOC ---
Past History Past Medical History: Diabetes, Hypertension, Other Additional Past Medical Histor: dialysis Past Surgical History: Cholecystectomy, Colectomy, Hysterectomy Additional Past Surgical Histo: PD tube placed at [facility] on 06.28.19 Alcohol Use: None Drug Use: None Adult General Chief Complaint Chief Complaint: HYPERTENSION HPI HPI Patient is a 78-year-old female who presents to the emergency department for alfredo vated blood pressure, she states that she routinely checks her blood pressure periodically and her blood pressure was found to be elevated, in the 180s at home this evening. She presents to the emergency department for evaluation. She denies any chest pain or shortness of breath, vision changes, numbness, weakness. She states that her head feels "big", but she does not have a heada ethan. She denies any other new painful areas. She has had several healthcare encounters recently for her blood pressure, both here, and at [facility]. She was hospitalized and reportedly was released earlier this week. Her medications include labetalol, diltiazem, hydralazine, and losartan. She has no other symptoms at this time. She recently started hemodialysis, and had a peritoneal dialysis catheter placed, which was supposed to begin being used tonight. Prior notes, imaging reports including a CT of her head from 07/08, as well as test results have been reviewed. Patient does appear anxious and her states that she has had issues with anxiety over the past few weeks due to all of her hospitalizations. Review of Systems Review of Systems Constitutional: Denies fever or chills [] Eyes: Denies change in visual acuity, redness, or eye pain [] HENT: Denies nasal congestion or sore throat [] Respiratory: Denies cough or shortness of breath [] Cardiovascular: The patient denies any shortness of breath, chest pain, palpitations, or orthopnea [] GI: Denies abdominal pain, nausea, vomiting, bloody stools or diarrhea [] : Denies dysuria or hematuria [] Musculoskeletal: Denies back pain or joint pain [] Integument: Denies rash or skin lesions [] Neurologic: Denies headache, focal weakness or sensory changes [] Endocrine: Denies polyuria or polydipsia [] All other systems were reviewed and found to be within normal limits, except as documented in this note. Current Medications Current Medications Current Medications Medications (Trade) Dose Ordered Sig/Genna Start Time Stop Time Status Last Admin Dose Admin Clonidine HCl (Catapres) 0.1 mg 1X ONCE 07/19/19 03:30 07/19/19 03:31 UNV Lorazepam (Ativan Inj) 0.5 mg 1X ONCE 07/19/19 03:30 07/19/19 03:31 UNV Allergies Allergies Allergies Coded Allergies Type Severity Reaction Last Updated Verified No Known Drug Allergies 08/09/13 No Physical Exam Physical Exam PHYSICAL EXAM: CONSTITUTIONAL: Well developed, well nourished HEAD: normocephalic, atraumatic EENT: PERRL, EOMI. Conjunctivae normal color, sclerae non-icteric; moist mucous membranes. NECK: Supple, non-tender; no meningismus. LUNGS: Lungs CTA, breathing even and unlabored. Normal air movement. HEART: Regular rate and rhythm, there is a soft systolic murmur CHEST: No deformity; non-tender ABDOMEN: The abdomen is soft, and non-tender, no masses or bruits. EXTREM: Normal ROM; no deformity, no calf tenderness. Normal pulses palpable in all extremities. There is no pedal edema. SKIN: No rash; no diaphoresis NEURO: Alert; normal speech and cognition; CN's grossly intact; strength grossly intact without focal deficit. BACK: No CVA TTP. PSYCHIATRIC: The patient exhibits a moderately anxious affect. Current Patient Data Lab Results Laboratory Tests Test 07/19/19 03:35 White Blood Count 10.0 x10^3/uL Red Blood Count 2.88 x10^6/uL Hemoglobin 8.7 g/dL Hematocrit 27.3 % Mean Corpuscular Volume 95 fL Mean Corpuscular Hemoglobin 30 pg Mean Corpuscular Hemoglobin Concent 32 g/dL Red Cell Distribution Width 13.6 % Platelet Count 485 x10^3/uL Neutrophils (%) (Auto) 55 % Lymphocytes (%) (Auto) 27 % Monocytes (%) (Auto) 10 % Eosinophils (%) (Auto) 7 % Basophils (%) (Auto) 1 % Neutrophils # (Auto) 5.5 x10^3uL Lymphocytes # (Auto) 2.7 x10^3/uL Monocytes # (Auto) 1.0 x10^3/uL Eosinophils # (Auto) 0.7 x10^3/uL Basophils # (Auto) 0.1 x10^3/uL Sodium Level 136 mmol/L Potassium Level 4.3 mmol/L Chloride Level 101 mmol/L Carbon Dioxide Level 23 mmol/L Anion Gap 12 Blood Urea Nitrogen 17 mg/dL Creatinine 4.9 mg/dL Estimated GFR (Cockcroft-Gault) 10.4 Glucose Level 100 mg/dL Calcium Level 9.0 mg/dL Troponin I Quantitative < 0.017 ng/mL Current Medications Medications (Trade) Dose Ordered Sig/Genna Route PRN Reason Start Time Stop Time Status Last Admin Dose Admin Clonidine HCl (Catapres) 0.1 mg 1X ONCE PO 07/19/19 03:30 07/19/19 05:11 DC 07/19/19 05:04 Lorazepam (Ativan Inj) 0.5 mg 1X ONCE IVP 07/19/19 03:30 07/19/19 05:11 DC 07/19/19 03:50 Lorazepam (Ativan Inj) 0.5 mg 1X ONCE IVP 07/19/19 04:30 07/19/19 05:11 DC 07/19/19 04:25 EKG EKG Normal sinus rhythm with a normal rate, normal axis, normal intervals, there are no acute ischemic ST/T changes.[] Radiology/Procedures Radiology/Procedures [] Course & Med Decision Making Course & Med Decision Making Pertinent Labs and Imaging studies reviewed. (See chart for details) []545 AM: The patient's condition remained stable, blood pressure 157/65. I discussed the importance of close PCP follow-up and return precautions in detail. Dragon Disclaimer Dragon Disclaimer This electronic medical record was generated, in whole or in part, using a voice recognition dictation system. Departure Departure: Impression: Primary Impression: Hypotension Additional Impression: Anxiety Disposition: 01 HOME, SELF-CARE Condition: STABLE Referrals: MARTIN MORRIS MD (PCP) Patient Instructions: Anxiety and Panic Attacks, Hypertension Problem Qualifiers KASIA GILLIAM MD Jul 19, 2019 03:20
[2019-07-19] MEDS ORDERED: cloNIDine HCL 0.1 MG TABLET PO ONE (03:30)
[2019-07-19 03:55] LABS: BASO # 0.1 x10^3/uL (0.0-0.2); BASO % 1 % (0-3); EOS # 0.7 x10^3/uL (0.0-0.7); EOS % 7 % (0-3); HEMATOCRIT 27.3 % (36.0-47.0); HEMOGLOBIN 8.7 g/dL (12.0-15.5); LYMPH # 2.7 x10^3/uL (1.0-4.8); LYMPH % 27 % (24-48); MEAN CORPUSCULAR HEMOGLOBIN 30 pg (25-35); MEAN CORPUSCULAR HGB CONC 32 g/dL (31-37); MEAN CORPUSCULAR VOLUME 95 fL (79-100); MONO % 10 % (0-9); NEUT # 5.5 x10^3uL (1.8-7.7); NEUT % 55 % (31-73); PLATELET COUNT 485 x10^3/uL (140-400); RED BLOOD COUNT 2.88 x10^6/uL (3.50-5.40); RED CELL DISTRIBUTION WIDTH 13.6 % (11.5-14.5)
[2019-07-19 04:01] LABS: CREATININE 4.9 mg/dL (0.6-1.0); GFR 10.4; POTASSIUM 4.3 mmol/L (3.5-5.1)
[2019-07-19 05:58] VITALS: BP 144/55
--- NOTE | 2019-07-19 07:15 | EKG ---
[address] [address] Test Date: 2019-07-19 Test Time: 03:55:18 Pat Name: NICOL BOWER Department: Room: Gender: F Director Life: : 1940 Requested By: KASIA GILLIAM Order Number: [id number] Reading MD: Measurements Intervals [place] Rate: 88 P: 60 UT: 174 QRS: 18 QRSD: 78 T: 104 QT: 382 QTc: 466 Interpretive Statements SINUS RHYTHM T ABNORMALITY IN HIGH LATERAL LEADS ABNORMAL ECG RI6.01 No previous ECG available for comparison
== END 2019-07-19 06:03 | disposition home or self-care (01) ==
LOC: ER 03:02
DX: I95.9 Hypotension, unspecified (principal); F41.9 Anxiety disorder, unspecified; I10 Essential (primary) hypertension; E11.9 Type 2 diabetes mellitus without complications; Z99.2 Dependence on renal dialysis
CPT/HCPCS: 36415; 80048; 84484; 85025; 93005; 96374; 96376; 99285; J2060

== ENCOUNTER 2019-07-25 07:43 | Emergency (ER) | payer MEDICARE, OTHER ==
[~2019-07-25] VITALS: Ht 160 cm; Wt 68.0 kg
--- NOTE | 2019-07-25 07:54 | PHYS DOC ---
Past History Past Medical History: Diabetes, Hypertension, Renal Failure Additional Past Medical Histor: sarcodosis Past Surgical History: Hysterectomy Additional Past Surgical Histo: right rotator cuff repair, right chest hemodyalisis port. Smoking: Non-smoker Alcohol Use: None Drug Use: None Adult General Chief Complaint Chief Complaint: Hypertension HPI HPI Patient is 78-year-old female with past medical history of renal failure and diabetes mellitus in the emergency department with high blood pressure over the past several days. She states that she was seen in the emergency department about a week ago for the same complaint she was told to follow-up outpatient with her family doctor which she did so yesterday. Family doctor discontinued her labetalol and put her on a clonidine patch, she took her blood pressure after and it was elevated and was instructed by home health RN to come in this m orning because it continued to be elevated. She states that her highest blood pressure at home was a systolic of 217. She reports that she has Tuesday/Tuesday/Tuesday dialysis and has not missed dialysis session, she is scheduled to complete one later today. She reports some lightheadedness that began 2 days ago and some weakness has been present for a couple weeks. She denies numbness, tingling, dizziness, and disorientation. Patient denies chest pain and shortness breath. Patient admits to being mildly anxious. Review of Systems Review of Systems Constitutional: Denies fever or chills Eyes: Denies redness or eye pain HENT: Denies nasal congestion or sore throat Respiratory: Denies cough or shortness of breath Cardiovascular: Denies chest pain or palpitations GI: Denies abdominal pain, nausea, or vomiting : Denies dysuria or hematuria Musculoskeletal: Denies back pain or joint pain Integument: Denies rash or skin lesions Neurologic: Denies headache, focal weakness or sensory changes. Reports lightheadedness and generalized weakness. Complete systems were reviewed and found to be within normal limits, except as documented in this note. Allergies Allergies Allergies Coded Allergies Type Severity Reaction Last Updated Verified No Known Drug Allergies 08/09/13 No Physical Exam Physical Exam Constitutional: Well developed, well nourished, no acute distress, non-toxic appearance HENT: Normocephalic, atraumatic, oropharynx moist Eyes: PERRL, EOMI, conjunctiva normal, no discharge Neck: Normal range of motion, no tenderness, supple Cardiovascular: Heart rate normal, regular rhythm Lungs & Thorax: Bilateral breath sounds clear to auscultation, no wheezing, right upper chest wall hemodialysis cath in place Abdomen: Soft, no tenderness, peritoneal dialysis cath in place Skin: Warm, dry, no erythema, no rash Extremities: No tenderness, ROM intact, no edema Neurologic: Alert and oriented X 3, normal motor function, normal sensory function, no focal deficits noted, cerebellar function Psychologic: Affect anxious, judgement normal EKG EKG @0807 NSR at 94bpm, NO ST elevation Radiology/Procedures Radiology/Procedures PROCEDURE: CT HEAD WO CONTRAST CT HEAD WO CONTRAST History: Weakness, lightheaded Comparison: July 08, 2019 Technique: Noncontrast CT imaging was performed of the head. Exposure: One or more of the following individualized dose reduction techniques were utilized for this examination: 1. Automated exposure control 2. Adjustment of the mA and/or kV according to patient size 3. Use of iterative reconstruction technique. Findings: There is some motion degradation. No new convincing acute intracranial hemorrhage is identified. There is again some calcification of the bilateral basal ganglia, also small foci of the bilateral cerebellum. 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 There is no new midline shift or intra-axial mass effect. Ventricular size is stable, within normal limits. Cerebral volume is within normal limits for the patient's age. Horta-white differentiation of the major vascular territories is maintained. Visualized paranasal sinuses and the mastoid air cells are aerated. Impression: 1. No convincing acute intracranial abnormality is identified by CT. Electronically signed by: Tanika Romano MD (07/25/2019 8:37 AM) [facility] DICTATED AND SIGNED BY: TANIKA ROMANO MD DATE: 07/25/19 0837 CC: MARTIN MORRIS MD; LARS MENDOZA DO ~ Course & Med Decision Making Course & Med Decision Making Pertinent Labs and Imaging studies reviewed. (See chart for details) Patient is a 78-year-old female is presenting for hypertension. Patient was seen and evaluated at bedside. Patient appears mildly anxious and reports generalized weakness but otherwise with a [address] and initial labs appear to be at baseline. EKG stable Patient and family in agreement with admission for failure of outpatient treatment. Patient requiring transfer for admission for further evaluation and treatment due to need for hemodialysis. Discussed with Dr. Cruz (hospitalist) who is in agreement with admission. Discussed findings and plan with patient and family, who acknowledge understanding and agreement. Patient will be transferred to [facility] for admission. Dragon Disclaimer Dragon Disclaimer This electronic medical record was generated, in whole or in part, using a voice recognition dictation system. Departure Departure: Impression: Primary Impression: Hypertensive urgency Additional Impressions: End stage renal disease on dialysis Anemia Anxiety Disposition: 05 TRANSFER OTHER ([facility]) Admitting Physician: Alexx Cruz Condition: STABLE Referrals: MARTIN MORRIS MD (PCP) NIHSS - ED NIH Stroke Scale: NIH Stroke Scale Response (Comments) Value Level of Consciousness: 0 Alert/Responsive 0 LOC Questions: 0 Answers both correctly 0 LOC Commands: 0 Performs both tasks 0 Best Gaze: 0 Normal 0 Visual: 0 No visual loss 0 Facial Palsy: 0 Normal, symmetrical 0 Motor - Left Arm 0 No drift 0 Motor - Right Arm 0 No drift 0 Motor - Left Leg 0 No drift 0 Motor: Right Leg 0 No drift 0 Limb Ataxia: 0 Absent 0 Sensory: 0 No loss 0 Best Language: 0 Normal 0 Dysathria: 0 Normal 0 Extinction and Inattention: 0 Normal 0 Total 0 Critical Care Time Critical care time was 30 minutes which includes time at bedside, spent in discussion of patient's care with specialists and/or family members, with interpretation of laboratory and/or radiological studies and is exclusive of procedures. Problem Qualifiers Additional Impressions: Anemia Anemia type: due to chronic kidney disease Chronic kidney disease stage: on chronic dialysis Qualified Codes: N18.6 - End stage renal disease; D63.1 - Anemia in chronic kidney disease; Z99.2 - Dependence on renal dialysis LARS MENDOZA DO Jul 25, 2019 07:54
[2019-07-25] MEDS ORDERED: hydrALAZINE 20 MG/ML VIAL. IV ONE ×2 (08:00→08:15)
[2019-07-25 08:10] LABS: BASO # 0.1 x10^3/uL (0.0-0.2); BASO % 1 % (0-3); EOS # 0.8 x10^3/uL (0.0-0.7); EOS % 8 % (0-3); HEMATOCRIT 30.2 % (36.0-47.0); HEMOGLOBIN 9.9 g/dL (12.0-15.5); LYMPH % 21 % (24-48); MEAN CORPUSCULAR HEMOGLOBIN 31 pg (25-35); MEAN CORPUSCULAR HGB CONC 33 g/dL (31-37); MEAN CORPUSCULAR VOLUME 94 fL (79-100); MONO # 0.9 x10^3/uL (0.0-1.1); MONO % 10 % (0-9); NEUT # 5.6 x10^3uL (1.8-7.7); NEUT % 60 % (31-73); PLATELET COUNT 386 x10^3/uL (140-400); RED CELL DISTRIBUTION WIDTH 14.2 % (11.5-14.5); WHITE BLOOD COUNT 9.4 x10^3/uL (4.0-11.0)
[2019-07-25] MEDS ORDERED: cloNIDine HCL 0.1 MG TABLET PO ONE (08:15)
[2019-07-25 08:16] LABS: CALCIUM 8.8 mg/dL (8.5-10.1); CREATININE 4.2 mg/dL (0.6-1.0); GFR 12.5; POTASSIUM 3.8 mmol/L (3.5-5.1)
[2019-07-25 08:31] LABS: ALBUMIN 2.5 g/dL (3.4-5.0); ALBUMIN/GLOBULIN RATIO 0.5 (1.0-1.7); MAGNESIUM 1.8 mg/dL (1.8-2.4); TOTAL BILIRUBIN 0.5 mg/dL (0.2-1.0); TOTAL PROTEIN 7.2 g/dL (6.4-8.2)
--- NOTE | 2019-07-25 08:40 | RAD ---
CT HEAD WO CONTRAST History: Weakness, lightheaded Comparison: July 08, 2019 Technique: Noncontrast CT imaging was performed of the head. Exposure: One or more of the following individualized dose reduction techniques were utilized for this examination: 1. Automated exposure control 2. Adjustment of the mA and/or kV according to patient size 3. Use of iterative reconstruction technique. Findings: There is some motion degradation. No new convincing acute intracranial hemorrhage is identified. There is again some calcification of the bilateral basal ganglia, also small foci of the bilateral cerebellum. 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 There is no new midline shift or intra-axial mass effect. Ventricular size is stable, within normal limits. Cerebral volume is within normal limits for the patient's age. Horta-white differentiation of the major vascular territories is maintained. Visualized paranasal sinuses and the mastoid air cells are aerated. Impression: 1. No convincing acute intracranial abnormality is identified by CT. Electronically signed by: Chalo Oliveira MD (07/25/2019 8:37 AM) [facility]
[2019-07-25 09:26] VITALS: BP 187/78
--- NOTE | 2019-07-25 17:39 | EKG ---
[address] [address] Test Date: 2019-07-25 Test Time: 08:07:01 Pat Name: NICOL BOWER Department: Room: Gender: F Wrapper Opener: : 1940 Requested By: LARS MENDOZA Order Number: [id number] Reading MD: Measurements Intervals [place] Rate: 94 P: 71 SC: 180 QRS: 27 QRSD: 78 T: 76 QT: 372 QTc: 465 Interpretive Statements SINUS RHYTHM NO SPECIFIC ECG ABNORMALITIES RI6.01 No previous ECG available for comparison
== END 2019-07-25 09:55 | disposition short-term general hospital (02) ==
LOC: ER 07:43
DX: I16.0 Hypertensive urgency (principal); I12.0 Hypertensive chronic kidney disease with stage 5 chronic kidney disease or end stage renal disease; E11.22 Type 2 diabetes mellitus with diabetic chronic kidney disease; N18.6 End stage renal disease; D64.9 Anemia, unspecified; F41.9 Anxiety disorder, unspecified; Z99.2 Dependence on renal dialysis
CPT/HCPCS: 36415; 70450; 80053; 82553; 83690; 83735; 84484; 85025; 85610; 85730; 93005; 96374; 96375; 99291; J0360; J2060

== ENCOUNTER 2019-09-11 08:50 | Emergency (ER) | payer MEDICARE, OTHER ==
[~2019-09-11] VITALS: Ht 167.6 cm; Wt 65.0 kg
[2019-09-11] MEDS ORDERED: IV NORMAL SALINE 1,000ML 1,000 ML IV ONE (09:15)
[2019-09-11] MEDS ORDERED: INSULIN REGULAR 100 UNIT/ML 3ML VIAL. IV ONE (09:15)
--- NOTE | 2019-09-11 09:24 | PHYS DOC ---
Past History Past Medical History: Diabetes, Hypertension, Renal Failure Additional Past Medical Histor: sarcodosis Past Surgical History: Hysterectomy Additional Past Surgical Histo: right rotator cuff repair, right chest hemodyalisis port. Peritoneal dialys Smoking: Non-smoker Alcohol Use: None Drug Use: None Adult General Chief Complaint Chief Complaint: AMS HPI HPI 78-year-old female presents with hyperglycemia and concern for stroke. When her left at 7:15 this morning she was able to his symptoms by and was speaking clearly at that time. By 8 AM, the patient's daughter stated that her speech was incoherent. Her came back home from work and brought her to the emergency room. They were unable to check her blood sugar at home, but were concerned that she might have high blood sugar as she is a diabetic. On route to the emergency room, the patient is able to nod answers to questions. She is understanding were saying, but does not seem to be able to speak. She has tried to make words, but there is only minimal sound. Her blood sugar was found to be "high" on our point of care meter. The patient has no history of stroke. Many years ago they thought she might have had a mini stroke, but had no lasting deficits. She has been feeling well prior to today. She denies fever or chills. She has some right leg weakness. Review of Systems Review of Systems Constitutional: Denies fever or chills [] Eyes: Denies change in visual acuity, redness, or eye pain [] HENT: Denies nasal congestion or sore throat [] Respiratory: Denies cough or shortness of breath [] Cardiovascular: No additional information not addressed in HPI [] GI: Denies abdominal pain, nausea, vomiting, bloody stools or diarrhea [] : Denies dysuria or hematuria [] Musculoskeletal: Denies back pain or joint pain [] Integument: Denies rash or skin lesions [] Neurologic: Right leg weakness, unable to speak[] Endocrine: Denies polyuria or polydipsia [] All other systems were reviewed and found to be within normal limits, except as documented in this note. Current Medications Current Medications Current Medications Medications (Trade) Dose Ordered Sig/Genna Start Time Stop Time Status Last Admin Dose Admin Insulin Human Regular (HumuLIN R VIAL) 10 unit 1X ONCE 09/11/19 09:15 09/11/19 09:16 DC Sodium Chloride 1,000 ml @ 1,000 mls/hr 1X ONCE 09/11/19 09:15 09/11/19 10:14 Allergies Allergies Allergies Coded Allergies Type Severity Reaction Last Updated Verified No Known Drug Allergies 08/09/13 No Physical Exam Physical Exam Constitutional: Well developed, well nourished, no acute distress, non-toxic a ppearance. [] HENT: Normocephalic, atraumatic, bilateral external ears normal, oropharynx moist, no oral exudates, nose normal. [] Eyes: PERRLA, EOMI, conjunctiva normal, no discharge. [] Neck: Normal range of motion, no tenderness, supple, no stridor. [] Cardiovascular:Heart rate regular rhythm, no murmur [] Lungs & Thorax: Bilateral breath sounds clear to auscultation [] Abdomen: Bowel sounds normal, soft, no tenderness, no masses, no pulsatile masses. [] Skin: Warm, dry, no erythema, no rash. [] Back: No tenderness, no CVA tenderness. [] Extremities: No tenderness, no cyanosis, no clubbing, ROM intact, no edema. [] Neurologic: Alert and oriented X 3, decreased strength right leg, able to make sound, but no clear words[] Psychologic: Affect normal, judgement normal, mood normal. [] EKG EKG Sinus rhythm, rate 74, normal axis, no ST elevations or depressions.[] Radiology/Procedures Radiology/Procedures [] Impressions: CT CODE STROKE HEAD WO History: Left-sided weakness. Comparison: July 25, 2019 Technique: Noncontrast CT imaging was performed of the head. Exposure: One or more of the following individualized dose reduction techniques were utilized for this examination: 1. Automated exposure control 2. Adjustment of the mA and/or kV according to patient size 3. Use of iterative reconstruction technique. Findings: No intracranial hemorrhage. No mass effect. No hydrocephalus. Mild foci of decreased attenuation within the hemispheric white matter, most often due to chronic microvascular ischemia, unchanged. Imaged orbits are unremarkable. Imaged paranasal sinuses are clear. Right mastoid and middle ear opacification. No acute calvarial fracture. Impression: 1. No acute intracranial abnormality. 2. Right otomastoid effusion. FOR INTERNAL CODING PURPOSES Critical result: Findings discussed with CLAUDIA PARKS at 09/11/2019 9:17 AM. RESULT CODE: (C) Electronically signed by: Lj Vargas DO (09/11/2019 9:19 AM) [facility] DICTATED AND SIGNED BY: LJ VARGAS DO DATE: 09/11/19918 CC: CLAUDIA PARKS DO; MARTIN MORRIS MD ~ Course & Med Decision Making Course & Med Decision Making Pertinent Labs and Imaging studies reviewed. (See chart for details) The patient's initial NIH scale was 8. As I prepared to discuss tPA with family, the patient was started on liter of normal saline given 10 units of insulin. On reexam, she was able to speak clearly. Her strength is improving. The patient appears to be improving and the cause of her deficits as her diabetes, not a stroke. Her head CT was negative. We will not consider TPA at this time. The patient's repeat NIH is a 3 because she still has some dysarthria and improved weakness of the right lower extremity, but it still drifts v left leg. Patient's blood sugar was over 700. Her potassium is 2.8. We're giving her potassium by IV and orally. She has been placed on insulin drip. I spoke with Dr. Cruz and he has advised we transfer the patient to [facility]. He will accept her as the admission. 41 minutes of critical care time was spent on this patient exclusive of other billable procedures. [] Dragon Disclaimer Dragon Disclaimer This electronic medical record was generated, in whole or in part, using a voice recognition dictation system. NIH Stroke Scale: NIH Stroke Scale Response (Comments) Value Level of Consciousness: 0 Alert/Responsive 0 LOC Questions: 2 Answers neither correct 2 LOC Commands: 0 Performs both tasks 0 Best Gaze: 0 Normal 0 Visual: 0 No visual loss 0 Facial Palsy: 0 Normal, symmetrical 0 Motor - Left Arm 0 No drift 0 Motor - Right Arm 0 No drift 0 Motor - Left Leg 0 No drift 0 Motor: Right Leg 2 Some effort 2 Limb Ataxia: 0 Absent 0 Best Language: 2 Severe aphasia 2 Dysathria: 2 Severe 2 Extinction and Inattention: 0 Normal 0 Total 8 Departure Departure: Impression: Primary Impression: Hyperglycemia Additional Impressions: AMS (altered mental status) Hypokalemia Disposition: 02 XFER SHT-TRM HOSP Admitting Physician: Alexx Cruz Condition: STABLE Referrals: MARTIN MORRIS MD (PCP) Problem Qualifiers CLAUDIA PARKS DO Sep 11, 2019 09:24
[2019-09-11 09:44] LABS: BASO # 0.1 x10^3/uL (0.0-0.2); BASO % 1 % (0-3); EOS # 0.3 x10^3/uL (0.0-0.7); EOS % 4 % (0-3); HEMATOCRIT 33.2 % (36.0-47.0); HEMOGLOBIN 10.8 g/dL (12.0-15.5); LYMPH # 1.2 x10^3/uL (1.0-4.8); LYMPH % 18 % (24-48); MEAN CORPUSCULAR HEMOGLOBIN 30 pg (25-35); MEAN CORPUSCULAR HGB CONC 32 g/dL (31-37); MEAN CORPUSCULAR VOLUME 92 fL (79-100); MONO # 0.5 x10^3/uL (0.0-1.1); MONO % 8 % (0-9); NEUT # 4.5 x10^3uL (1.8-7.7); NEUT % 69 % (31-73); PLATELET COUNT 416 x10^3/uL (140-400); RED BLOOD COUNT 3.62 x10^6/uL (3.50-5.40); RED CELL DISTRIBUTION WIDTH 13.2 % (11.5-14.5); WHITE BLOOD COUNT 6.6 x10^3/uL (4.0-11.0)
[2019-09-11 09:58] LABS: ALBUMIN 1.2 g/dL (3.4-5.0); ALBUMIN/GLOBULIN RATIO 0.3 (1.0-1.7); CALCIUM 7.6 mg/dL (8.5-10.1); CREATININE 3.7 mg/dL (0.6-1.0); GFR 14.4; TOTAL BILIRUBIN 0.3 mg/dL (0.2-1.0); TOTAL PROTEIN 5.4 g/dL (6.4-8.2)
[2019-09-11 10:02] LABS: POTASSIUM 2.8 mmol/L (3.5-5.1)
[2019-09-11] MEDS ORDERED: DEXTROSE 50% 25 GM / 50ML DISP.SYRIN. IV PRN (10:15)
[2019-09-11] MEDS ORDERED: INSULIN REGULAR VIAL 100 UNIT in IV NORMAL SALINE 100ML 100 ML IV PRN (10:15)
[2019-09-11] MEDS ORDERED: POTASSIUM CL 40MEQ IN 0.9%NACL 1,000 ML IV ONE (10:15)
[2019-09-11] MEDS ORDERED: POTASSIUM CHLORIDE 20 MEQ PACKET. PO ONE (11:15)
[2019-09-11] MEDS ORDERED: POTASSIUM CHLORIDE 20 MEQ PACKET. FT ONE (11:15)
[2019-09-11 12:55] VITALS: BP 112/58
--- NOTE | 2019-09-11 16:44 | EKG ---
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
== END 2019-09-11 13:35 | disposition short-term general hospital (02) ==
LOC: ER 08:50
DX: E11.65 Type 2 diabetes mellitus with hyperglycemia (principal); R41.82 Altered mental status, unspecified; E87.6 Hypokalemia; I12.9 Hypertensive chronic kidney disease with stage 1 through stage 4 chronic kidney disease, or unspecified chronic kidney disease; E11.22 Type 2 diabetes mellitus with diabetic chronic kidney disease; N18.9 Chronic kidney disease, unspecified; Z90.710 Acquired absence of both cervix and uterus
CPT/HCPCS: 36415; 70450; 80053; 82947; 85025; 85610; 85730; 93005; 96361; 96374; 96375; 96376; 99285; J1815; 96365; J7030

== ENCOUNTER 2020-02-10 01:32 | Emergency (ER) | payer MEDICARE, OTHER ==
[~2020-02-10] VITALS: Ht 160 cm; Wt 69.0 kg
[~2020-02-10 01:32] MED LIST changes: +LORA0.5T21 PO; -LORA0.5T96 PO
--- NOTE | 2020-02-10 01:37 | PHYS DOC ---
Past History Past Medical History: Anemia, Anxiety, Arthritis, Arrhythmia, CHF, Diabetes, Fibromyalgia, GERD, High Cholesterol, Heart Disease, Hypertension, Renal Disease, Renal Failure, Other Additional Past Medical Histor: sarcodosis Past Surgical History: No Surgical History Additional Past Surgical Histo: right rotator cuff repair, right chest hemodyalisis port. Peritoneal dialys Smoking: Non-smoker Alcohol Use: None Drug Use: None General Adult HPI: HPI: "... This all started yesterday... but the pain in my rt neck...and arm is so much worse this morning.. I woke..and it is like electrical shock..burning pain... it runs down this Rt. arm...I can't stand it.. it hurt so much.. it make my arm weak..." Patient is a 79 year old FEMALE who presents with above hx and complaints of Rt. arm numbness that started yesterday, but more persistent today. Patient awoke from sleep tonight with increased symptoms of weakness. Patient does have a significant past medical history of diabetes, hypertension, hyperlipidemia, chronic renal disease on peritoneal dialysis, TIAs, sarcoidosis, anxiety disorder, depression, macular degeneration, diet bed ache retinopathy, tendinitis, central neuro deafness, and deconditioning. Has past surgical history for bilateral cataract extraction, cholecystectomy, right shoulder ro tator cuff repair, right middle finger fracture and repair, open reduction and internal fixation, hysterectomy, and oophorectomy, and peritoneal dialysis shunt. The patient normally follows with Dr. Childers. Follows with Dr. Casillas for nephrology.. Review of Systems: Review of Systems: Constitutional: Denies fever or chills Eyes: Denies change in visual acuity HENT: Denies nasal congestion or sore throat Respiratory: Denies cough or shortness of breath Cardiovascular: Denies chest pain or edema GI: Denies abdominal pain, nausea, vomiting, bloody stools or diarrhea : Denies dysuria Musculoskeletal: Complains of severe right neck, shoulder and arm pain with associated weakness Integument: Denies rash Neurologic: Denies headache, focal weakness or sensory changes Endocrine: Denies polyuria or polydipsia Lymphatic: Denies swollen glands Psychiatric: Complains of marked anxiety Heart Score: HEART Score for Chest Pain: HEART Score for Chest Pain Response (Comments) Value History Moderately Suspicious 1 ECG Nonspecific Repolarizatio 1 Age > 65 2 Risk Factors >3 Risk Factors or Hx CAD 2 Troponin < Normal Limit 0 Total 6 Risk Factors: Risk Factors: DM, Current or recent (<one month) smoker, HTN, HLP, family histo ry of CAD, obesity. Risk Scores: Score 0 - 3: 2.5% MACE over next 6 weeks - Discharge Home Score 4 - 6: 20.3% MACE over next 6 weeks - Admit for Clinical Observation Score 7 - 10: 72.7% MACE over next 6 weeks - Early Invasive Strategies Family History: Family History: Has family history of 2 brothers 1 sister all . Brother had hypertension and end-stage renal disease. Sister of seizure, younger brother of a obscure cancer. Mother age 25 and father at age 23 due to sarcoidosis. 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 She has 7 daughters and 3 sons. Patient does not smoke or use recreational drugs. Current Medications: Current Meds: See nursing for home meds Allergies: Allergies: Allergies Coded Allergies Type Severity Reaction Last Updated Verified No Known Drug Allergies 08/09/13 No Physical Exam: PE: Constitutional: Moderate acute emotional distress, non-toxic appearance. [] HENT: Normocephalic, atraumatic, bilateral external ears normal, oropharynx moist, no oral exudates, nose normal. Very hard of hearing Eyes: PERRLA, EOMI, conjunctiva normal, no discharge. [] Neck: Normal range of motion, no tenderness, supple, no stridor. [] Cardiovascular: Tachycardia heart rate regular rhythm, no murmur [] PMI to the left Lungs & Thorax: Bilateral breath sounds equal at apex with few scattered whe ezes on auscultation [] Abdomen: Bowel sounds normal, soft, no tenderness, no masses, no pulsatile masses. Peritoneal dialysis shunt covered Skin: Warm, dry, no erythema, no rash. [] Back: No tenderness, no CVA tenderness. [] Extremities: Right shoulder and arm tenderness, no cyanosis, no clubbing, ROM intact, no edema. Arthritic changes. Right shoulder scar. Neurologic: Alert and oriented X 3, moves all extremities on request, reports burning and numbness like feeling and pain in right arm , no focal deficits noted. [] DTRs +2 patellar and brachial. Turner In equal. No drift. Patient does complain her right arm seems to be weak . Patient is right-hand dominant. Psychologic: Affect extremely anxious , judgement normal, mood normal. [] EKG: EKG: My interpretation EKG shows a sinus tachycardia 112 bpm. There is some bimodal P waves. Some nonspecific T wave changes. But no findings of acute STEMI with contralateral changes. [] Radiology/Procedures: Radiology/Procedures: [][facility] [place] [id number] IMAGING REPORT Signed PATIENT: NICOL BOWER ACCOUNT: [id number] : 1940 LOCATION: ER AGE: 79 SEX: F EXAM STATUS: REG ER ORD. PHYSICIAN: JOB ARREDONDO MD REASON: Neuropathy pain, right arm numbness, neck pain, headache PROCEDURE: CT HEAD AND CERVICAL SPINE WO CT HEAD AND CERVICAL SPINE WO Date: 02/10/2020 1:55 AM Clinical Indication: Reason: Neuropathy pain, right arm numbness, neck pain, headache / Spl. Instructions: / History: Comparison: 09/11/2019. Technique: 5 mm axial tomographic images were obtained of the head without contrast. These were viewed on brain and bone windows. Noncontrast CT of the cervical spine was performed. Sagittal and coronal reformats were performed and evaluated. One or more of the following dose reduction techniques were utilized: Automated exposure control (AEC), Adjustment of mA and/or kV according to patient size, Use of iterative reconstruction technique such as ASiR, CT scan done according to ALARA and image gently/image wisely HEAD FINDINGS: Mild generalized cerebral and cerebellar volume loss. Mild nonspecific periventricular hypoattenuation, most commonly seen with chronic small vessel ischemic disease. No intra- or extra-axial mass or fluid collection. No acute hemorrhage. The ventricles are normal in size, shape, and morphology. The velasco-white matter junction is normal. The basilar cisterns are patent. The visualized paranasal sinuses are normal. The visualized portions of the orbits and globes are normal. The mastoid air cells are clear. No aggressive osseous lesion or fracture. CERVICAL SPINE FINDINGS: The cervical spine is normally aligned. No acute fracture. No aggressive lytic or blastic osseous lesions. Moderate multilevel degenerative disc space height loss. Multilevel spinal canal stenosis secondary to disc protrusions and marginal osteophytes, worst at C5-6 where a right paracentral protrusion results in at least moderate spinal canal stenosis. Multilevel mild and moderate neuroforaminal narrowing secondary to uncovertebral arthrosis. Multilevel mild facet arthrosis. The thyroid gland is normal. No cervical lymphadenopathy. Bilateral carotid atherosclerosis. The visualized aerodigestive tract is normal. The visualized portions of the lungs are clear. IMPRESSION: 1. No acute intracranial process. 2. No acute cervical spine fracture. Electronically signed by: Tanika Martin MD (02/10/2020 3:05 AM) [facility] DICTATED AND SIGNED BY: TANIKA MARTIN MD DATE: 02/10/20304 CC: JOB ARREDONDO MD; MARTIN CHILDERS MD ~ [place] [address] IMAGING REPORT Signed PATIENT: NICOL BOWER ACCOUNT: [id number] : 1940 LOCATION: ER AGE: 79 SEX: F EXAM STATUS: REG ER ORD. PHYSICIAN: JOB ARREDONDO MD REASON: Dyspnea, abdomen pain. Hx: Dialysis port PROCEDURE: ABDOMEN SUPINE & UPRIGHT CHEST PA LATERAL, ABDOMEN SUPINE UPRIGHT INDICATION: Reason: Dyspnea, abdomen pain. Hx: Dialysis port / Spl. Instructions: / History: . COMPARISON STUDY: Chest radiograph 07/08/2019. FINDINGS: Lungs: Normal lung volume. No pulmonary mass or consolidation. The tracheobronchial tree and hilar structures are normal. Pleura: No pleural effusion or pneumothorax. Heart and Mediastinum: The cardiomediastinal silhouette is normal. The great vessels of the thorax are normal. Abdomen: Nonobstructive bowel gas pattern. No free air. Cholecystectomy clips. Moderate colonic stool burden. Bones and Soft Tissues: Degenerative changes of the spine. IMPRESSION: 1. Nonobstructive bowel gas pattern. Moderate colonic stool burden. 2. No focal airspace disease. Electronically signed by: Tanika Martin MD (02/10/2020 3:06 AM) [facility] DICTATED AND SIGNED BY: TANIKA MARTIN MD DATE: 02/10/20305 CC: JOB ARREDONDO MD; MARTIN CHILDERS MD ~ Course & Med Decision Making: Course & Med Decision Making Pertinent Labs and Imaging studies reviewed. (See chart for details)Discussed findings of CT and Labs with patient. Pt. does report marked improvement of her anxiety , neck and the neuropathy in her Rt. arm. Plan Transfer to [facility], for MRI of head and neck. Consult with Dr. Casillas- [facility]. Possible Neuro or Neuro surgery consult as indicated from MRI results. Suspect primary cause of the Rt. arm weakness and pain from cervical impingement/ DJD. Pt. presentation, testing and tx. plan discussed with Dr. Cruz. Impression: 1, Right neck and arm pain 2. Right arm weakness 3 . End-stage renal disease on peritoneal dialysis 5 to 7 days a week (BUN36/6.4 Creat) 4. Elevated d-dimer 1.61 5. Hyponatremia 132 6. Diabetes-glucose 197 7. Accelerated hypertension 8. Anxiety [] Dragon Disclaimer: Dragon Disclaimer: This electronic medical record was generated, in whole or in part, using a voice recognition dictation system. Departure Departure: Disposition: 01 HOME/RESIDENCE PRIOR TO ADM Condition: STABLE Referrals: MARTIN CHILDERS MD (PCP) Justification of Admission: Justification of Admission: Justification of Admission Dx: Yes Chronic Renal Failure: Cardiac Arrhythmias Dragon Disclaimer This chart was dictated in whole or in part using Voice Recognition software in a busy, high-work load, and often noisy Emergency Department environment. It may contain unintended and wholly unrecognized errors or omissions. Dragon Disclaimer This chart was dictated in whole or in part using Voice Recognition software in a busy, high-work load, and often noisy Emergency Department environment. It may contain unintended and wholly unrecognized errors or omissions. JOB ARREDONDO MD Feb 10, 2020 01:37
--- NOTE | 2020-02-10 02:09 | EKG ---
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
--- NOTE | 2020-02-10 03:08 | RAD ---
CT HEAD AND CERVICAL SPINE WO Date: 02/10/2020 1:55 AM Clinical Indication: Reason: Neuropathy pain, right arm numbness, neck pain, headache / Spl. Instructions: / History: Comparison: 09/11/2019. Technique: 5 mm axial tomographic images were obtained of the head without contrast. These were viewed on brain and bone windows. Noncontrast CT of the cervical spine was performed. Sagittal and coronal reformats were performed and evaluated. One or more of the following dose reduction techniques were utilized: Automated exposure control (AEC), Adjustment of mA and/or kV according to patient size, Use of iterative reconstruction technique such as ASiR, CT scan done according to ALARA and image gently/image wisely HEAD FINDINGS: Mild generalized cerebral and cerebellar volume loss. Mild nonspecific periventricular hypoattenuation, most commonly seen with chronic small vessel ischemic disease. No intra- or extra-axial mass or fluid collection. No acute hemorrhage. The ventricles are normal in size, shape, and morphology. The velasco-white matter junction is normal. The basilar cisterns are patent. The visualized paranasal sinuses are normal. The visualized portions of the orbits and globes are normal. The mastoid air cells are clear. No aggressive osseous lesion or fracture. CERVICAL SPINE FINDINGS: The cervical spine is normally aligned. No acute fracture. No aggressive lytic or blastic osseous lesions. Moderate multilevel degenerative disc space height loss. Multilevel spinal canal stenosis secondary to disc protrusions and marginal osteophytes, worst at C5-6 where a right paracentral protrusion results in at least moderate spinal canal stenosis. Multilevel mild and moderate neuroforaminal narrowing secondary to uncovertebral arthrosis. Multilevel mild facet arthrosis. The thyroid gland is normal. No cervical lymphadenopathy. Bilateral carotid atherosclerosis. The visualized aerodigestive tract is normal. The visualized portions of the lungs are clear. IMPRESSION: 1. No acute intracranial process. 2. No acute cervical spine fracture. Electronically signed by: Chalo Martin MD (02/10/2020 3:05 AM) [facility]
--- NOTE | 2020-02-10 03:09 | RAD ---
CHEST PA LATERAL, ABDOMEN SUPINE UPRIGHT INDICATION: Reason: Dyspnea, abdomen pain. Hx: Dialysis port / Spl. Instructions: / History: . COMPARISON STUDY: Chest radiograph 07/08/2019. FINDINGS: Lungs: Normal lung volume. No pulmonary mass or consolidation. The tracheobronchial tree and hilar structures are normal. Pleura: No pleural effusion or pneumothorax. Heart and Mediastinum: The cardiomediastinal silhouette is normal. The great vessels of the thorax are normal. Abdomen: Nonobstructive bowel gas pattern. No free air. Cholecystectomy clips. Moderate colonic stool burden. Bones and Soft Tissues: Degenerative changes of the spine. IMPRESSION: 1. Nonobstructive bowel gas pattern. Moderate colonic stool burden. 2. No focal airspace disease. Electronically signed by: Chalo Martin MD (02/10/2020 3:06 AM) [facility]
[2020-02-10] MEDS ORDERED: oxyCODONE/APAP 5/325 1 TAB TABLET PO ONE (03:30)
[2020-02-10] MEDS ORDERED: LORazepam 1 MG TABLET PO ONE (03:30)
[2020-02-10 03:35] LABS: BGAS PH 7.46 (7.35-7.45)
[2020-02-10 03:55] LABS: BASO # 0.1 x10^3/uL (0.0-0.2); BASO % 1 % (0-3); EOS # 0.2 x10^3/uL (0.0-0.7); EOS % 2 % (0-3); HEMATOCRIT 36.6 % (36.0-47.0); HEMOGLOBIN 12.1 g/dL (12.0-15.5); LYMPH # 1.4 x10^3/uL (1.0-4.8); LYMPH % 17 % (24-48); MEAN CORPUSCULAR HEMOGLOBIN 30 pg (25-35); MEAN CORPUSCULAR HGB CONC 33 g/dL (31-37); MEAN CORPUSCULAR VOLUME 90 fL (79-100); MONO # 0.8 x10^3/uL (0.0-1.1); MONO % 10 % (0-9); NEUT # 5.4 x10^3uL (1.8-7.7); NEUT % 69 % (31-73); PLATELET COUNT 348 x10^3/uL (140-400); RED BLOOD COUNT 4.07 x10^6/uL (3.50-5.40); RED CELL DISTRIBUTION WIDTH 14.8 % (11.5-14.5); WHITE BLOOD COUNT 7.8 x10^3/uL (4.0-11.0)
[2020-02-10 03:59] LABS: CALCIUM 8.4 mg/dL (8.5-10.1); CREATININE 6.4 mg/dL (0.6-1.0); GFR 7.6; POTASSIUM 4.1 mmol/L (3.5-5.1)
[2020-02-10 04:06] LABS: ALBUMIN 2.3 g/dL (3.4-5.0); DIRECT BILIRUBIN 0.1 mg/dL (0.0-0.2); MAGNESIUM 1.7 mg/dL (1.8-2.4); TOTAL BILIRUBIN 0.3 mg/dL (0.2-1.0); TOTAL PROTEIN 7.1 g/dL (6.4-8.2)
[2020-02-10 04:15] LABS: BACTERIA,URINE 0 /HPF (0-FEW); BILIRUBIN,URINE NEG (NEG); CLARITY,URINE CLEAR; COLOR,URINE YELLOW; GLUCOSE,URINE 100 mg/dL (NEG); NITRITE,URINE NEG (NEG); RBC,URINE 0 /HPF (0-2); SQUAMOUS EPITHELIAL CELL,UR FEW /LPF; UROBILINOGEN,URINE 0.2 mg/dL (0.2 mg/dL); WBC,URINE OCC /HPF (0-4)
[2020-02-10 05:52] VITALS: BP 161/91
== END 2020-02-10 05:54 | disposition short-term general hospital (02) ==
LOC: ER 01:32
DX: M54.2 Cervicalgia (principal); M79.601 Pain in right arm; R53.1 Weakness; I13.2 Hypertensive heart and chronic kidney disease with heart failure and with stage 5 chronic kidney disease, or end stage renal disease; E11.22 Type 2 diabetes mellitus with diabetic chronic kidney disease; N18.6 End stage renal disease; I50.9 Heart failure, unspecified; R79.1 Abnormal coagulation profile; E87.1 Hypo-osmolality and hyponatremia; F41.9 Anxiety disorder, unspecified; M19.90 Unspecified osteoarthritis, unspecified site; M79.7 Fibromyalgia; K21.9 Gastro-esophageal reflux disease without esophagitis; E78.00 Pure hypercholesterolemia, unspecified; Z86.2 Personal history of diseases of the blood and blood-forming organs and certain disorders involving the immune mechanism; Z99.2 Dependence on renal dialysis
CPT/HCPCS: 36415; 70450; 71046; 72125; 74019; 80048; 80076; 81001; 82550; 82803; 83690; 83735; 84443; 84484; 85025; 85379; 85610; 85730; 87040; 93005; 96374; 99285; J2060

== ENCOUNTER 2020-03-12 07:24 | Emergency (ER) | payer MEDICARE, OTHER ==
[~2020-03-12] VITALS: Ht 160 cm; Wt 70.0 kg
--- NOTE | 2020-03-12 07:57 | PHYS DOC ---
Past History Past Medical History: Anemia, Anxiety, Arthritis, Arrhythmia, CHF, Diabetes, Fibromyalgia, GERD, High Cholesterol, Heart Disease, Hypertension, Renal Disease, Renal Failure, Other Additional Past Medical Histor: sarcodosis; peritoneal dialysis Past Surgical History: Cholecystectomy, Hysterectomy Additional Past Surgical Histo: right rotator cuff repair, right chest hemodyalisis port. Peritoneal dialys Smoking: Non-smoker Alcohol Use: None Drug Use: None Adult General HPI HPI Patient is a 79-year-old female who presents for chest pressure. Onset was this morning and awoke her from sleep. Patient reported feeling substernal and left- sided chest pressure which she reported felt like indigestion, also felt heart palpitations which worried her. Nothing known made better or worse, denied rebecca ng any zack pain, timing of symptoms was constant since onset. Patient denies any concerning constitutional symptoms, no fever or recent viral illness, no known COVID-19 contacts. Patient performs peritoneal dialysis at home Tuesday through Tuesday, she has been compliant with this, has not missed a day. She does not know her dry weight. Patient also has cardiac work-up ongoing in outpatient setting, reports recently having an unremarkable 14-day monitor, reports having a stress test set up for this upcoming Tuesday Review of Systems Review of Systems Fourteen body systems of review of systems have been reviewed. See HPI for pertinent positives and negative responses, other baldwin all other systems are negative, non-pertinent or non-contributory Allergies Allergies Allergies Coded Allergies Type Severity Reaction Last Updated Verified No Known Drug Allergies 02/10/20 No Physical Exam Physical Exam Constitutional: Well developed, well nourished, no acute distress, non-toxic appearance. HENT: Normocephalic, atraumatic, bilateral external ears normal, oropharynx moist, no oral exudates, nose normal. Eyes: PERRLA, EOMI, conjunctiva normal, no discharge. Neck: Normal range of motion, no tenderness, supple, no stridor. Cardiovascular: Heart rate tachycardic, sinus rhythm, no rubs or gallops Lungs & Thorax: Bilateral breath sounds clear to auscultation Abdomen: Bowel sounds normal, soft, no tenderness, no masses, no pulsatile masses, dressing covering peritoneal dialysis access site on left side of anterior abdomen covered with dressing that is dry and intact and well- appearing. Nonsurgical abdomen, no peritoneal signs Skin: Warm, dry, no erythema, no rash. Back: No tenderness, no CVA tenderness. Extremities: No tenderness, no cyanosis, no clubbing, ROM intact, 2+ pitting edema to bilateral lower extremities Neurologic: Alert and oriented X 3, grossly normal motor & sensory function, no focal deficits noted. Psychologic: Affect normal, judgement normal, mood normal. Current Patient Data Vital Signs Vital Signs Date Time Temp Pulse Resp B/P (MAP) Pulse Ox O2 Delivery O2 Flow Rate FiO2 03/12/20 08:10 103 20 153/69 (97) 100 03/12/20 07:54 98.1 86 18 159/84 (109) 100 Room Air Lab Results Laboratory Tests Test 03/12/20 07:45 White Blood Count 7.9 x10^3/uL Red Blood Count 3.70 x10^6/uL Hemoglobin 11.1 g/dL Hematocrit 33.6 % Mean Corpuscular Volume 91 fL Mean Corpuscular Hemoglobin 30 pg Mean Corpuscular Hemoglobin Concent 33 g/dL Red Cell Distribution Width 15.6 % Platelet Count 382 x10^3/uL Neutrophils (%) (Auto) 58 % Lymphocytes (%) (Auto) 25 % Monocytes (%) (Auto) 11 % Eosinophils (%) (Auto) 4 % Basophils (%) (Auto) 1 % Neutrophils # (Auto) 4.6 x10^3uL Lymphocytes # (Auto) 2.0 x10^3/uL Monocytes # (Auto) 0.8 x10^3/uL Eosinophils # (Auto) 0.3 x10^3/uL Basophils # (Auto) 0.1 x10^3/uL Sodium Level 139 mmol/L Potassium Level 4.0 mmol/L Chloride Level 103 mmol/L Carbon Dioxide Level 24 mmol/L Anion Gap 12 Blood Urea Nitrogen 37 mg/dL Creatinine 6.1 mg/dL Estimated GFR (Cockcroft-Gault) 8.1 BUN/Creatinine Ratio 6 Glucose Level 159 mg/dL Calcium Level 9.1 mg/dL Phosphorus Level 3.2 mg/dL Magnesium Level 1.8 mg/dL Total Bilirubin 0.5 mg/dL Aspartate Amino Transf (AST/SGOT) 21 U/L Alanine Aminotransferase (ALT/SGPT) 15 U/L Alkaline Phosphatase 99 U/L Troponin I Quantitative < 0.017 ng/mL EM-Fdo-H-Type Natriuretic Peptide 2814 pg/mL Total Protein 8.1 g/dL Albumin 2.6 g/dL Albumin/Globulin Ratio 0.5 Lipase 88 U/L Current Medications Medications (Trade) Dose Ordered Sig/Genna Route PRN Reason Start Time Stop Time Status Last Admin Dose Admin Aspirin (Aspirin Chewable) 324 mg 1X ONCE PO 03/12/20 08:00 03/12/20 08:01 DC 03/12/20 08:11 Multi-Ingredient Mouthwash/Gargle (Gi Cocktail) 20 ml 1X ONCE PO 03/12/20 08:30 03/12/20 08:31 DC 03/12/20 08:26 EKG EKG EKG ordered and interpreted by myself at 0733 hrs. as sinus tachycardia at 111 bpm, normal intervals, no axis deviation, nonspecific repolarization abnormality in lead V4, no other signs of acute ischemia, no STEMI Radiology/Procedures Radiology/Procedures PROCEDURE: PORTABLE CHEST 1V PORTABLE CHEST 1V Clinical indications: Chest pain. COMPARISON: February 10, 2020. Findings: No acute lung infiltrate or pleural effusion or pulmonary edema or lung mass or pneumothorax is seen. The heart size, pulmonary vasculature, mediastinum and both danelle are stable. Surgical anchors are seen within the proximal right humerus related to rotator cuff surgery. Impression: No acute radiographic abnormality is seen. Electronically signed by: Chris Toribio MD (03/12/2020 8:39 AM) [id number] Course & Med Decision Making Course & Med Decision Making Patient seen and evaluated on immediate ED arrival, nontoxic-appearing Airway patent, breathing unremarkable, IV access obtained and vital signs recorded significant for mild sinus tachycardia and mild hypertension Comprehensive history and physical exam obtained with subsequent labs and imaging studies ordered 324 mg aspirin and 40 mg IV Lasix administered with improvement in patient's symptomology ED course and ordered studies reviewed, heart score 6, patient's vitals improved throughout stay Nonetheless, patient at high risk for cardiac compromise, I feel she will require admission for continued cardiac observation, she will need nephrology consultation given that she undergoes peritoneal dialysis daily, given that she has outpatient stress test scheduled this upcoming Tuesday, this should be considered this admission if feasible Ultimately, joint decision between myself and patient to admit for further medical management and observation. Hospitalist at [facility] called, Dr. Castillo, who agreed need for admission and accepted patient under his care All questions and concerns addressed with patient prior to departure from my facility in stable condition [place] Disclaimer Dragon Disclaimer This electronic medical record was generated, in whole or in part, using a voice recognition dictation system. The HEART Score for CP Pts HEART Score for Chest Pain: HEART Score for Chest Pain Response (Comments) Value History Moderately Suspicious 1 ECG Nonspecific Repolarizatio 1 Age > 65 2 Risk Factors >3 Risk Factors or Hx CAD 2 Total 6 Risk Factors: Risk Factors: DM, Current or recent (<one month) smoker, HTN, HLP, family history of CAD, obesity. Risk Scores: Score 0 - 3: 2.5% MACE over next 6 weeks - Discharge Home Score 4 - 6: 20.3% MACE over next 6 weeks - Admit for Clinical Observation Score 7 - 10: 72.7% MACE over next 6 weeks - Early Invasive Strategies Departure Departure: Impression: Primary Impression: Chest pain, rule out acute myocardial infarction Additional Impressions: End stage renal disease Type II diabetes mellitus Disposition: 05 TRANSFER OTHER (to [facility] for Nephro and Cardiology) Admitting Physician: Other (Dr. Castillo at [facility]) Condition: STABLE Referrals: MARTIN MORRIS MD (PCP) Justification of Admission: Justification of Admission: Justification of Admission Dx: Yes Chronic Renal Failure: Cardiac Arrhythmias Problem Qualifiers DANIEL DAVID DO Mar 12, 2020 07:57
[2020-03-12] MEDS ORDERED: ASPIRIN CHEWABLE 81 MG TABLET. PO ONE (08:00)
[2020-03-12 08:01] LABS: BASO # 0.1 x10^3/uL (0.0-0.2); BASO % 1 % (0-3); EOS # 0.3 x10^3/uL (0.0-0.7); EOS % 4 % (0-3); HEMATOCRIT 33.6 % (36.0-47.0); HEMOGLOBIN 11.1 g/dL (12.0-15.5); LYMPH % 25 % (24-48); MEAN CORPUSCULAR HEMOGLOBIN 30 pg (25-35); MEAN CORPUSCULAR HGB CONC 33 g/dL (31-37); MEAN CORPUSCULAR VOLUME 91 fL (79-100); MONO # 0.8 x10^3/uL (0.0-1.1); MONO % 11 % (0-9); NEUT # 4.6 x10^3uL (1.8-7.7); NEUT % 58 % (31-73); PLATELET COUNT 382 x10^3/uL (140-400); RED CELL DISTRIBUTION WIDTH 15.6 % (11.5-14.5); WHITE BLOOD COUNT 7.9 x10^3/uL (4.0-11.0)
[2020-03-12 08:07] LABS: CALCIUM 9.1 mg/dL (8.5-10.1); CREATININE 6.1 mg/dL (0.6-1.0); GFR 8.1
[2020-03-12 08:20] LABS: ALBUMIN 2.6 g/dL (3.4-5.0); ALBUMIN/GLOBULIN RATIO 0.5 (1.0-1.7); MAGNESIUM 1.8 mg/dL (1.8-2.4); PHOSPHORUS 3.2 mg/dL (2.6-4.7); TOTAL BILIRUBIN 0.5 mg/dL (0.2-1.0); TOTAL PROTEIN 8.1 g/dL (6.4-8.2)
[2020-03-12] MEDS ORDERED: LIDO:MAALOX 1:1 20 ML SINGLE DOSE. PO ONE (08:30)
--- NOTE | 2020-03-12 08:42 | RAD ---
PORTABLE CHEST 1V Clinical indications: Chest pain. COMPARISON: February 10, 2020. Findings: No acute lung infiltrate or pleural effusion or pulmonary edema or lung mass or pneumothorax is seen. The heart size, pulmonary vasculature, mediastinum and both danelle are stable. Surgical anchors are seen within the proximal right humerus related to rotator cuff surgery. Impression: No acute radiographic abnormality is seen. Electronically signed by: Chris Toribio MD (03/12/2020 8:39 AM) [id number]
[2020-03-12] MEDS ORDERED: FUROSEMIDE 40 MG/4 ML VIAL IVP ONE (09:00)
[2020-03-12 09:57] VITALS: BP 148/69
[2020-03-12] MEDS ORDERED: LORazepam 1 MG TABLET PO PRN (13:15)
[2020-03-12] MEDS ORDERED: traMADol 50 MG TABLET PO PRN (13:15)
[2020-03-12] MEDS ORDERED: PENTOXIFYLLINE ER 400 MG TABLET.ER. PO SCH (14:00)
--- NOTE | 2020-03-12 15:23 | EKG ---
[address] [address] Test Date: 2020-03-12 Test Time: 07:30:44 Pat Name: NICOL BOWER Department: Room: Gender: F Community Life Director: JORGE : 1940 Requested By: DANIEL DAVID Order Number: [id number] Reading MD: Measurements Intervals [place] Rate: 111 P: 73 NH: 172 QRS: 28 QRSD: 76 T: 66 QT: 328 QTc: 449 Interpretive Statements SINUS TACHYCARDIA NO SPECIFIC ECG ABNORMALITIES RI6.02 No previous ECG available for comparison
[2020-03-12] MEDS ORDERED: NON FORMULARY ITEM (Insulin Aspart (Novolog) 1 UNIT) SQ SCH (16:30)
[2020-03-12] MEDS ORDERED: NON FORMULARY ITEM (Carvedilol (Coreg) 25 MG) PO SCH (17:00)
[2020-03-12] MEDS ORDERED: INSULIN GLARGINE HUM REC ANLOG 30 UNIT SQ SCH (21:00)
[2020-03-12] MEDS ORDERED: TIMOLOL 0.5% OPHTH SOLUTION 5ML BOTTLE. OU SCH (21:00)
[2020-03-13] MEDS ORDERED: NON FORMULARY ITEM (Losartan/Hydrochlorothiazide (Losartan-Hctz 100-25 Mg Tab) 1 TAB) PO SCH (09:00)
[2020-03-13] MEDS ORDERED: PANTOPRAZOLE 40 MG TABLET. PO SCH (09:00)
[2020-03-13] MEDS ORDERED: VITAMIN B COMP W C PO SCH (09:00)
[2020-03-13] MEDS ORDERED: FOLIC ACID PO SCH (09:00)
== END 2020-03-12 10:10 | disposition short-term general hospital (02) ==
LOC: ER 07:24
DX: R07.89 Other chest pain (principal); E11.22 Type 2 diabetes mellitus with diabetic chronic kidney disease; I13.2 Hypertensive heart and chronic kidney disease with heart failure and with stage 5 chronic kidney disease, or end stage renal disease; I50.9 Heart failure, unspecified; N18.6 End stage renal disease; F41.9 Anxiety disorder, unspecified; M19.90 Unspecified osteoarthritis, unspecified site; M79.7 Fibromyalgia; K21.9 Gastro-esophageal reflux disease without esophagitis; E78.00 Pure hypercholesterolemia, unspecified; Z99.2 Dependence on renal dialysis; Z86.2 Personal history of diseases of the blood and blood-forming organs and certain disorders involving the immune mechanism
CPT/HCPCS: 36415; 71045; 80053; 83690; 83735; 83880; 84100; 84484; 85025; 93005; 96374; 99285; J1940

== ENCOUNTER 2021-09-06 10:17 | Emergency (ER) | payer MEDICARE, OTHER ==
[~2021-09-06] VITALS: Ht 160 cm; Wt 71.1 kg
[~2021-09-06 10:17] MED LIST changes: +LISI10TA16 PO; -LISI10TA2 PO
--- NOTE | 2021-09-06 10:44 | PHYS DOC ---
Past History Past Medical History: Diabetes, Hypertension, Renal Disease Additional Past Medical Histor: treated for sarcoidosis in the past (MIKKI MARTIN APRN) Past Surgical History: Cholecystectomy, Hysterectomy, Other Additional Past Surgical Histo: right rotator cuff, PERITONEAL CATH PLACED 2019 (MIKKI MARTIN APRN) Smoking: Non-smoker Alcohol Use: None Drug Use: None (MIKKI MARTIN APRN) General Adult EDM: Chief Complaint: ABDOMINAL PAIN HPI: HPI: Patient is a 80-year-old female who presents to the emergency department for right flank pain that radiates to her right lower quadrant that started last night. Patient rates her pain 10 out of 10. No treatment prior to arrival. Patient does have a history of renal failure and receives peritoneal dialysis as well as hypertension and diabetes. Patient denies nausea, vomiting, diarrhea, fevers, urinary symptoms. (MIKKI MARTIN APRN) Review of Systems: Review of Systems: Constitutional: See HPI GI: See HPI GUSee HPI Musculoskeletal: See HPI (MIKKI MARTIN APRN) Allergies: Allergies: Allergies Coded Allergies Type Severity Reaction Last Updated Verified No Known Drug Allergies 09/06/21 No (MIKKI MARTIN APRN) Physical Exam: PE: Constitutional: Well developed, well nourished, no acute distress, non-toxic appearance. [] HENT: Normocephalic, atraumatic, bilateral external ears normal, oropharynx moist, no oral exudates, nose normal. [] Eyes: PERRL, EOMI, conjunctiva normal, no discharge. [] Neck: Normal range of motion, no tenderness, supple, no stridor. [] Cardiovascular:Heart rate regular rhythm, no murmur [] Lungs & Thorax: Bilateral breath sounds clear to auscultation [] Abdomen: Bowel sounds normal, soft, peritoneal dialysis shunt noted without any surrounding signs of skin infection, no tenderness with palpation, negative murphys sign, negative rovsings sign, no masses, no pulsatile masses. [] Skin: Warm, dry, no erythema, no rash. [] Back: No tenderness, no CVA tenderness. [] Extremities: No tenderness, no cyanosis, no clubbing, ROM intact, no edema. [] Neurologic: Alert and oriented X 3, normal motor function, normal sensory function, no focal deficits noted. [] Psychologic: Affect normal, judgement normal, mood normal. [] (MIKKI MARTIN MANAGER BANQUET) Current Patient Data: Labs: Laboratory Tests Test 09/06/21 10:52 09/06/21 11:14 White Blood Count 9.2 x10^3/uL Red Blood Count 3.73 x10^6/uL Hemoglobin 10.8 g/dL Hematocrit 33.2 % Mean Corpuscular Volume 89 fL Mean Corpuscular Hemoglobin 29 pg Mean Corpuscular Hemoglobin Concent 33 g/dL Red Cell Distribution Width 16.5 % Platelet Count 353 x10^3/uL Neutrophils (%) (Auto) 70 % Lymphocytes (%) (Auto) 13 % Monocytes (%) (Auto) 12 % Eosinophils (%) (Auto) 5 % Basophils (%) (Auto) 1 % Neutrophils # (Auto) 6.4 x10^3uL Lymphocytes # (Auto) 1.2 x10^3/uL Monocytes # (Auto) 1.1 x10^3/uL Eosinophils # (Auto) 0.4 x10^3/uL Basophils # (Auto) 0.1 x10^3/uL Sodium Level 132 mmol/L Potassium Level 4.7 mmol/L Chloride Level 96 mmol/L Carbon Dioxide Level 27 mmol/L Anion Gap 9 Blood Urea Nitrogen 64 mg/dL Creatinine 9.3 mg/dL Estimated GFR (Cockcroft-Gault) 4.9 BUN/Creatinine Ratio 7 Glucose Level 129 mg/dL Calcium Level 8.2 mg/dL Total Bilirubin 0.5 mg/dL Aspartate Amino Transf (AST/SGOT) 21 U/L Alanine Aminotransferase (ALT/SGPT) 21 U/L Alkaline Phosphatase 89 U/L Total Protein 7.3 g/dL Albumin 2.5 g/dL Albumin/Globulin Ratio 0.5 Lipase 189 U/L Urine Collection Type Clean catch Urine Color Yellow Urine Clarity Cloudy Urine pH 6.0 Urine Specific [place] 1.025 Urine Protein >100 mg/dl Urine Glucose (UA) 100 mg/dL Urine Ketones (Stick) Trace mg/dL Urine Blood Large Urine Nitrite Neg Urine Bilirubin Neg Urine Urobilinogen Dipstick 0.2 mg/dL Urine Leukocyte Esterase Trace Urine RBC 20-40 /HPF Urine WBC 11-20 /HPF Urine Squamous Epithelial Cells Many /LPF Urine Bacteria Mod /HPF Current Medications Medications (Trade) Dose Ordered Sig/Genna Route PRN Reason Start Time Stop Time Status Last Admin Dose Admin Fentanyl Citrate (Fentanyl 2ml Vial) 50 mcg 1X ONCE IVP 09/06/21 10:45 09/06/21 10:46 DC 09/06/21 10:47 Fentanyl Citrate (Fentanyl 2ml Vial) 100 mcg STK-MED ONCE .ROUTE 09/06/21 10:41 09/06/21 10:41 DC Vital Signs: Vital Signs Date Time Temp Pulse Resp B/P (MAP) Pulse Ox O2 Delivery O2 Flow Rate FiO2 09/06/21 10:29 98.1 74 17 193/93 (126) 100 Room Air (MIKKI MARTIN MANAGER BANQUET) EKG: EKG: [] (MIKKI MARTIN APRN) Radiology/Procedures: Radiology/Procedures: []PROCEDURE: CT ABDOMEN PELVIS WO CONTRAST CT abdomen and pelvis without contrast PQRS statement: CT scans at this facility use dose reduction including either a utomated exposure control, iterative reconstructions, and /or weight based radiation dosing via mA and kV modification when appropriate to reduce radiation dose to as low as reasonably achievable. HISTORY: Right lower quadrant abdominal pain. Dialysis. COMPARISON: CT abdomen July 08, 2019 Abdomen findings: There is a small volume of pneumoperitoneum within the abdomen and pelvis as well as a small volume of low-density free fluid representing air introduced from the peritoneal dialysis catheter and small residual volume of dialysate. Lumbar disc disease. Lung bases are unremarkable. Cysts of the kidneys densities less than 10 units largest measuring 1.5 cm. No urinary calculi or hydronephrosis. There is mild perinephric edema. Pancreas, adrenals, spleen, liver unremarkable. Cholecystectomy. Peritoneal dialysis catheter coiled of the pelvis. Sigmoid colonic diverticulosis. Moderate volume of stool within the ascending and transverse colon. Appendix is negative. No bowel obstruction. There is mild diffuse prominence of the gastric wall thickness although this is similar to the prior exam. Calcified plaque in the aorta and abdominal arteries and iliac arteries. Pelvis findings: Small volume of low-density pelvic free fluid. Gallbladder wall thickening. Uterus is absent. Ovaries, rectum and bones are unremarkable. IMPRESSION: 1. Small volume of air and low-density free fluid within the abdomen and pelvis representing air introduced from the peritoneal dialysis catheter and residual fluid from the dialysate. 2. Appendix is negative. 3. Colonic diverticulosis without evidence of diverticulitis. 4. Large volume of stool indicate constipation within the ascending and transverse colon. No small bowel obstruction. 5. Urinary bladder wall thickening can be muscular hypertrophy versus inflammatory thickening from cystitis. 6. Mild perinephric edema without hydronephrosis likely reflective of chronic renal insufficiency. Renal cysts are noted. Electronically signed by: Alphonso Garland MD (09/06/2021 11:20 AM) [id number] DICTATED AND SIGNED BY: ALPHONSO GARLAND MD DATE: 09/06/21 1112 CC: MIKKI MARTIN APRN; MARTIN MORRIS MD ~MTH0 0 (MIKKI MARTIN APRN) Heart Score: C/O Chest Pain: N/A Risk Factors: Risk Factors: DM, Current or recent (<one month) smoker, HTN, HLP, family history of CAD, obesity. Risk Scores: Score 0 - 3: 2.5% MACE over next 6 weeks - Discharge Home Score 4 - 6: 20.3% MACE over next 6 weeks - Admit for Clinical Observation Score 7 - 10: 72.7% MACE over next 6 weeks - Early Invasive Strategies (MIKKI MARTIN APRN) Course & Med Decision Making: Course & Med Decision Making Pertinent Labs and Imaging studies reviewed. (See chart for details) Patient presents emergency department for right flank pain that radiates to her right lower quadrant. Patient does have a history of peritoneal dialysis at home. She denies any nausea, vomiting, diarrhea, urinary symptoms, fevers. Her coin purse framer is Dr. Casillas. Work-up in the ER consisted of blood work, urinal ysis and CT imaging of abdomen and pelvis. Patient's CBC was unremarkable. She was noted to have an elevated BUN and creatinine, it appears that her last lab result with this ER was 2 years ago and it was 6.1 at that time and patient is on dialysis currently. Patient advised to continue her peritoneal dialysis at home as directed. Her urinalysis did show an infection with blood, leukocytes, white blood cells and bacteria this will be treated with an antibiotic. Patient be treated for complicated UTI as she does not have any fevers, nausea or vomiting to indicate pyelonephritis. Patient's CT scan of her abdomen and pelvis showed bladder wall thickening indicating cystitis as well as constipation, chronic renal insufficiency and residual fluid from dialysate. Patient advised to follow-up with her primary care provider and her coin purse framer as soon as possible. Patient's vital signs are stable at this time. I discussed with patient all findings and diagnostic testing as well as the need to follow-up with PCP for further evaluation and treatment or return to the ER if any new or worsening symptoms. Strict return precautions were also discussed at length. Patient voiced understanding and agreement with the plan. Patient is hemodynamically stable at the time of disposition. (MIKKI MARTIN APRN) Dragon Disclaimer: Dragon Disclaimer: This electronic medical record was generated, in whole or in part, using a voice recognition dictation system. (MIKKI MARTIN APRN) Attending Co-Sign The patient was seen and interviewed as well as examined at the bedside. The chart was reviewed. The case was discussed. Agree with the plan of care. (CLAUDIA PARKS DO) Departure Departure: Impression: Primary Impression: Urinary tract infection Qualified Codes: N30.01 - Acute cystitis with hematuria Disposition: HOME / SELF CARE / HOMELESS Condition: GOOD Referrals: MARTIN MORRIS MD (PCP) Patient Instructions: Urinary Tract Infection Additional Instructions: You are seen in the emergency department today for flank pain and abdominal pain. The CT scan of your abdomen and pelvis did show constipation so make sure that you are taking daily MiraLAX which will help soften your stools and help with constipation. It also showed some bladder wall thickening indicating cystitis. Your urinalysis did show infection therefore, he will be treated with an antibiotic. Please start and finish the antibiotic completely. Avoid any bladder irritants like caffeine, sugary beverages or alcohol. Continue taking your peritoneal dialysis at home as directed. I would advise you to follow-up with your coin purse framer as soon as possible as sure kidney function was elevated in the ER today. Please contact them on Tuesday to set up a follow-up appointment. Return to the emergency department if you develop worsening of your abdominal or back pain, intractable nausea or vomiting, diarrhea, weakness, blood in your stools or vomit, high fevers refractory to treatment or any urinary symptoms. Scripts Cephalexin (KEFLEX) 500 Mg Capsule 1 CAP PO QID for uti for 10 Days, #40 CAP 0 Refills Prov: MIKKI MARTIN APRN 09/06/21 MIKKI MARTIN APRN Sep 06, 2021 10:44 CLAUDIA PARKS DO Sep 07, 2021 11:25
[2021-09-06 11:12] LABS: BASO # 0.1 x10^3/uL (0.0-0.2); BASO % 1 % (0-3); EOS # 0.4 x10^3/uL (0.0-0.7); EOS % 5 % (0-3); HEMATOCRIT 33.2 % (36.0-47.0); HEMOGLOBIN 10.8 g/dL (12.0-15.5); LYMPH # 1.2 x10^3/uL (1.0-4.8); LYMPH % 13 % (24-48); MEAN CORPUSCULAR HEMOGLOBIN 29 pg (25-35); MEAN CORPUSCULAR HGB CONC 33 g/dL (31-37); MEAN CORPUSCULAR VOLUME 89 fL (79-100); MONO # 1.1 x10^3/uL (0.0-1.1); MONO % 12 % (0-9); NEUT # 6.4 x10^3uL (1.8-7.7); NEUT % 70 % (31-73); PLATELET COUNT 353 x10^3/uL (140-400); RED BLOOD COUNT 3.73 x10^6/uL (3.50-5.40); RED CELL DISTRIBUTION WIDTH 16.5 % (11.5-14.5); WHITE BLOOD COUNT 9.2 x10^3/uL (4.0-11.0)
[2021-09-06 11:18] LABS: CALCIUM 8.2 mg/dL (8.5-10.1); CREATININE 9.3 mg/dL (0.6-1.0); GFR 4.9; POTASSIUM 4.7 mmol/L (3.5-5.1)
--- NOTE | 2021-09-06 11:22 | RAD ---
CT abdomen and pelvis without contrast PQRS statement: CT scans at this facility use dose reduction including either automated exposure cont rol, iterative reconstructions, and /or weight based radiation dosing via mA and kV modification when appropriate to reduce radiation dose to as low as reasonably achievable. HISTORY: Right lower quadrant abdominal pain. Dialysis. COMPARISON: CT abdomen July 08, 2019 Abdomen findings: There is a small volume of pneumoperitoneum within the abdomen and pelvis as well a s a small volume of low-density free fluid representing air introduced from the peritoneal dialysis c atheter and small residual volume of dialysate. Lumbar disc disease. Lung bases are unremarkable. Cys ts of the kidneys densities less than 10 units largest measuring 1.5 cm. No urinary calculi or hydron ephrosis. There is mild perinephric edema. Pancreas, adrenals, spleen, liver unremarkable. Cholecyste ctomy. Peritoneal dialysis catheter coiled of the pelvis. Sigmoid colonic diverticulosis. Moderate vo lume of stool within the ascending and transverse colon. Appendix is negative. No bowel obstruction. There is mild diffuse prominence of the gastric wall thickness although this is similar to the prior exam. Calcified plaque in the aorta and abdominal arteries and iliac arteries. Pelvis findings: Small volume of low-density pelvic free fluid. Gallbladder wall thickening. Uterus i s absent. Ovaries, rectum and bones are unremarkable. IMPRESSION: 1. Small volume of air and low-density free fluid within the abdomen and pelvis representing air intr oduced from the peritoneal dialysis catheter and residual fluid from the dialysate. 2. Appendix is negative. 3. Colonic diverticulosis without evidence of diverticulitis. 4. Large volume of stool indicate constipation within the ascending and transverse colon. No small lety wel obstruction. 5. Urinary bladder wall thickening can be muscular hypertrophy versus inflammatory thickening from cy stitis. 6. Mild perinephric edema without hydronephrosis likely reflective of chronic renal insufficiency. Re nal cysts are noted. Electronically signed by: Tommy Garland MD (09/06/2021 11:20 AM) [id number]
[2021-09-06 11:25] LABS: ALBUMIN 2.5 g/dL (3.4-5.0); ALBUMIN/GLOBULIN RATIO 0.5 (1.0-1.7); TOTAL BILIRUBIN 0.5 mg/dL (0.2-1.0); TOTAL PROTEIN 7.3 g/dL (6.4-8.2)
[2021-09-06 12:07] LABS: BILIRUBIN,URINE NEG (NEG); CLARITY,URINE CLOUDY; COLOR,URINE YELLOW; GLUCOSE,URINE 100 mg/dL (NEG)
[2021-09-06 12:08] LABS: BACTERIA,URINE MOD /HPF (0-FEW); NITRITE,URINE NEG (NEG); RBC,URINE 20-40 /HPF (0-2); SQUAMOUS EPITHELIAL CELL,UR MANY /LPF; UROBILINOGEN,URINE 0.2 mg/dL (0.2 mg/dL)
[2021-09-06] MEDS ORDERED: CEPH500C PO (12:22)
[2021-09-06 12:38] VITALS: BP 136/67
== END 2021-09-06 12:40 | disposition home or self-care (01) ==
LOC: ER 10:17
DX: N30.01 Acute cystitis with hematuria (principal); N28.9 Disorder of kidney and ureter, unspecified; E11.9 Type 2 diabetes mellitus without complications; I10 Essential (primary) hypertension; Z90.49 Acquired absence of other specified parts of digestive tract; Z90.710 Acquired absence of both cervix and uterus
CPT/HCPCS: 36415; 74176; 80053; 81001; 83690; 85025; 87086; 96374; 99284; J3010

== ENCOUNTER → 2022-01-01 | Outpatient (CLI) | payer MEDICARE, OTHER ==
[~2022-01-01] MED LIST changes: +CEPH500C PO
--- NOTE | 2022-01-01 14:44 | RAD ---
EXAMINATION: Right knee and right tibia-fibula radiograph. VIEWS: 3 views of the right knee anteriorly views of the right tibia-fibula COMPARISON: None INDICATION:81 years, Female, patient fell; right leg and knee pain. FINDINGS: No acute fracture, dislocation or subluxation. No bone erosion or periosteal reaction. No soft tissue swelling or joint effusion. Vascular calcifications are noted. IMPRESSION: No acute osseous process. Electronically signed by: Bryce Walker DO (01/01/2022 2:42 PM) [id number]
== END ==
LOC: RAD 13:47
PROVIDERS: ATTEND Nurse Practitioner Family
DX: I70.0 Atherosclerosis of aorta (principal)
CPT/HCPCS: 73562; 73590